=== PATIENT | male | born 1975 | race African-American/Black ===

== ENCOUNTER 2021-04-22 10:57 | Emergency (ER) | payer OTHER, SELFPAY ==
--- NOTE | ~2021-04-22 | XR_ITS ---
XR lumbar spine 2-3V DATE: 04/22/2021 11:27 INDICATION: Low back pain. No injury. TECHNIQUE: AP, lateral, coned lateral lumbosacral views COMPARISON: 10/21/2018 lumbar spine FINDINGS: There is minimal levoscoliosis. There is mild degenerative disc disease at L3-4 and moderately severe degenerative disc disease at L4 -5 and L5-S1. No fracture or bone destruction is evident. The lumbar pedicles are intact. No spondylolisthesis. The sacroiliac joints are unremarkable. IMPRESSION: Multilevel degenerative disc disease, most prominent at L4-5 and L5-S1 Reviewed, dictated and finalized at location A. [employer] IMPRESSION: Multilevel degenerative disc disease, most prominent at L4-5 and L5 -S1
--- NOTE | 2021-04-22 11:05 | ED.BACK ---
HPI - Back Pain/Injury General Chief Complaint: Back Pain/Injury Stated Complaint: back pain Time Seen by Provider: 04/22/21 11:08 Source: patient, RN notes reviewed and old records reviewed Mode of arrival: ambulatory Limitations: no limitations History of Present Illness HPI Narrative: 46 year old male presents to [facility] care with complaints of pain to his lumbar back with radiation to right buttocks and left buttocks down posteriorly to the knee area. Patient reports he has not taken any oral [id number] anti-inflammatories or any Tylenol, has used heat but that he states made it worse. Patient reports he had back surgery January 2019 at [facility] states it was a laminectomy. Patient denies any difficulty with bowel or bladder function states that he does have some tingling in the left upper leg. Patient describes his pain as pressure and is also sharp at times. MD elicited complaint: back pain Pertinent past history: back surgery Onset (ago): day(s) (4-5 days) Pain scale (0-10): 8 Related Data Home Medications Medication Instructions Recorded Confirmed cephalexin 04/22/21 Allergies Allergy/AdvReac Type Severity Reaction Status Date / Time No Known Allergies Allergy Unverified 10/19/18 05:32 Review of Systems Review of Systems: CONSTITUTIONAL: Denies fever, chills, or sweats. EYES: Denies visual changes, redness, or discharge. ENT: Denies rhinorrhea, congestion, sore throat, or otalgia. CARDIOVASCULAR: Denies chest pain, palpitations, or edema. RESPIRATORY: Denies cough or dyspnea. GASTROINTESTINAL: Denies abdominal pain, nausea, vomiting, or diarrhea. GENITOURINARY: Denies dysuria or hematuria. SKIN: Denies rash or itching. MUSCULOSKELETAL: Positive for lumbar back pain with radiation on pain into buttocks on right and down leg on left, joint pain, or myalgia. NEUROLOGIC: Denies headache, numbness, or weakness. PSYCHIATRIC: Denies anxiety or depression. All systems reviewed & are unremarkable except as noted in HPI and below PMFSH Past Medical History Medical History (Updated 04/22/21 @ 11:50 by Kristy Wang NP) Kidney stones Surgical History Surgical History (Updated 04/22/21 @ 11:11 by Kristy Wang NP) History of ankle surgery left for fracture Previous back surgery Family History Family History (Updated 04/22/21 @ 11:11 by Kristy Wang NP) Father Diabetes mellitus Mother Heart disease Social History Social History (Updated 04/22/21 @ 12:01 by Kristy Wang NP) Tobacco type: cigars Alcohol intake: current Alcohol use details: rare use Substance use: unknown Living arrangements: alone Gender identity (if verbalized by the patient): Male Comments At time of signature, agree with nursing past medical, surgical, social and family history. There is no relevant family history pertinent to the presenting complaint Exam Narrative: GENERAL: Well-appearing, well-nourished, and in some acute distress due to stated pain HEAD: Normocephalic, atraumatic. EYES: PERRLA and EOMI. ENT: Nares clear, no rhinorrhea or epistaxis. Mucous membranes moist. NECK: Supple. no lymphadenopathy CHEST: Clear to auscultation. No respiratory distress.SAO2 100% on room air HEART: Regular rate and rhythm. No murmur heard. Normal peripheral pulses. ABDOMEN: Soft, nontender, nondistended, normal active bowel sounds. EXTREMITIES: Normal range of motion. No edema. presents with pain to lumbar region with pain on right down into buttocks, on left into buttocks and down posterior left leg to knee with some tingling stated, pulses of adequate quality, using cane to assist with ambulation. Patient reports previous surgery to back at [facility] in January of 2019. patient denies any difficulty with his bowels or bladder functioning. SKIN: Warm, dry, no rash. NEURO: No focal deficits. Alert and oriented x3. Course Course Level of Care: Express Care Visit MDM - Back Pain/
[2021-04-22 11:08] VITALS: BP 120/80; PULSE 74; RESP 16; TEMP 36.9; O2SAT 100
== END 2021-04-22 11:57 | disposition home or self-care (01) ==
PROVIDERS: Emergency Provider Registered Nurse
DX: M54.16 Radiculopathy, lumbar region (principal); M51.36 Other intervertebral disc degeneration, lumbar region; F17.290 Nicotine dependence, other tobacco product, uncomplicated
CPT/HCPCS: 72100; 99213; G0463

== ENCOUNTER 2024-08-31 17:55 | Emergency (ER) | payer OTHER, SELFPAY ==
[2024-08-31 18:08] VITALS: BP 114/75; PULSE 60; RESP 16; TEMP 36.8; O2SAT 99
--- NOTE | 2024-08-31 18:28 | ED.LOWEXIN ---
HPI - Extremity Injury (Lower) General Chief Complaint: Extremity Injury, Lower Stated Complaint: INJURED R TOE Time Seen by Provider: 08/31/24 18:10 Source: patient Mode of arrival: ambulatory Limitations: no limitations History of Present Illness HPI Narrative: Mr. Vega is a 49-year-old male patient presenting to the clinic today with complaints of a right great toe injury. He reports 4 days ago he partially avulsed the toenail when he got the toenail caught on a piece of furniture. Is still attached at the base of the nail bed. States that it started draining a foul-smelling discharge yesterday. He denies any fevers, chills, body aches. Related Data Home Medications ?Medication ?Instructions ?Recorded ?Confirmed ?Last Taken ?Type cephalexin 500 mg capsule 04/22/21 Unknown History Allergies Allergy/AdvReac Type Severity Reaction Status Date / Time No Known Allergies Allergy Unverified 10/19/18 05:32 Review of Systems Review of Systems: Pertinent positives per HPI. Patient denies any fever, chills, rash, headache, visual changes, dizziness, cough, runny nose, sore throat, shortness of breath, chest pain, palpitations, nausea, vomiting, diarrhea, constipation, abdominal pain, or any urinary issues. PMFSH Past Medical History Medical History Kidney stones Surgical History Surgical History History of ankle surgery left for fracture Previous back surgery Family History Family History Father Diabetes mellitus Mother Heart disease Social History Social History Tobacco type: cigars Alcohol intake: current Alcohol use details: rare use Substance use: unknown Living arrangements: alone Gender identity (if verbalized by the patient): Male Comments At the time of my signature, I reviewed and agree with the nursing past medical, surgical, social, and family history. There is no relevant family history pertinent to the patient complaint. Exam Narrative: General: Well-developed, well nourished, in no apparent distress Head: Normocephalic, atraumatic. Cardio: Regular rate and rhythm, s1 and s2 normal, no murmur appreciated. Resp: Clear to auscultation bilaterally, no rhonchi, rales, wheezing or rubs. Musculoskeletal: No deformity, tenderness to palpation over the distal right great toe, partial nail avulsion with yellow discharge, wound culture obtained, grossly normal range of motion, muscle strength strong and equal, peripheral pulse strong, no edema, no cyanosis, normal gait and station Course Course Emergency Course: Portions of this record may have been created with voice recognition software. Level of Care: Express Care Visit Vital Signs Vital signs: Vital Signs Temperature 36.8 C 08/31/24 18:08 Pulse Rate 60 08/31/24 18:08 Respiratory Rate 16 08/31/24 18:08 Blood Pressure 114/75 08/31/24 18:08 Pulse Oximetry 99 08/31/24 18:08 Oxygen Delivery Room Air 08/31/24 18:08 Temperature 36.8 C 08/31/24 18:08 Pulse Rate 60 08/31/24 18:08 Respiratory Rate 16 08/31/24 18:08 Blood Pressure 114/75 08/31/24 18:08 Pulse Oximetry 99 08/31/24 18:08 Oxygen Delivery Room Air 08/31/24 18:08 Vital signs reviewed MDM - Extremity Injury (Lower) MDM Narrative Medical decision making narrative: At the time of visit patient is resting comfortably on the exam table. Patient appears to be nontoxic. Medications: Tdap 0.5 mL IM was given in the clinic today Labs: Wound culture was obtained and sent to the lab Plan: I suspect patient has a right great toe cellulitis/skin infection with a partial nail avulsion. Recommend follow-up with production specialist and have the patient start with a clindamycin. Supportive measures were discussed with the patient and they voiced understanding discharge instructions and agrees to treatment plan. Return precautions reviewed Differential Diagnosis Differential diagnosis: Likely other (Toenail avulsion, cellulitis, skin infection, laceration) Discharge Plan Discharge Clinical Impression: Cellulitis of great toe of right foot, Avulsion of nail Patient Disposition: Home Condition: Stable Instructions: Antibiotic Form, Cellulitis (ED), Nail Avulsion (ED) Additional Instructions: Tdap given in the clinic today Wound culture was obtained and sent to the lab Take clindamycin as prescribed Keep area clean and dry Keep covered if draining May take Tylenol/Motrin as needed for pain May complete Epsom salt soaks 4 times daily using warm water and Epsom salt Follow-up with production specialist as discussed-call tomorrow to schedule appointment Follow-up with PCP in 2-3 days if unable to get to production specialist Patient Language: Hebrew Prescriptions: New clindamycin HCl [Cleocin HCl] 300 mg capsule 300 mg PO Q8H 10 Days Qty: 30 0RF No Action cephalexin 500 mg capsule prednisone 20 mg tablet 20 mg PO BID 5 Days Qty: 10 0RF metaxalone [Skelaxin] 800 mg tablet 800 mg PO TID PRN (Reason: muscle pain) Qty: 20 0RF Rx Instructions: Do not drive while taking ibuprofen 600 mg tablet 600 mg PO TID PRN (Reason: pain) Qty: 30 0RF Rx Instructions: Always take with food Follow-up/Referrals: Aroldo Martin DPM [Physician] - 1 Day (Partial nail avulsion of the right great toe with right great toe cellulitis) Akash,MD Payam [Primary Care Provider] - Time of Disposition: 18:35 Quality NIHSS Nursing Documentation ED NIHSS nursing documentation: reviewed/agree
[2024-08-31] MEDS: TETANUS,DIPHTHERIA,AC PERTUSSIS ADULT (0.5 ML) BOOSTRIX IM (18:56)
== END 2024-08-31 18:47 | disposition home or self-care (01) ==
PROVIDERS: Emergency Provider Nurse Practitioner Family; PCP Family Medicine
DX: L03.031 Cellulitis of right toe (principal); S91.201A Unspecified open wound of right great toe with damage to nail, initial encounter; W22.03XA Walked into furniture, initial encounter; Z23 Encounter for immunization
CPT/HCPCS: 87070; 87075; 87186; 87205; 90471; 90715; 99213; G0463

== ENCOUNTER 2025-02-03 13:12 | Emergency (ER) | payer OTHER, SELFPAY ==
[2025-02-03 13:26] VITALS: BP 121/87; PULSE 71; RESP 16; TEMP 36.6; O2SAT 100
--- NOTE | 2025-02-03 13:36 | ED.SKABFB ---
HPI - Skin/Abscess/Foreign Bdy General Chief complaint: Skin/Abscess/Foreign Body Stated complaint: Rash Time Seen by Provider: 02/03/25 13:30 Source: patient Mode of arrival: ambulatory Limitations: no limitations History of Present Illness HPI narrative: Keith is a 50-year-old male patient presenting to the clinic today with complaints of a rash to his groin and to his bilateral lower extremities. He reports he has 2 areas that are tender and draining to the lower legs. Areas are mildly red and erythemic. He denies any fevers, chills, body aches. States he has a rash in his groin that is burning, sensitive, and using some drainage. Does have pustule lesions to his penis, scrotum, and in the tissue just under the scrotum. Symptoms have been going on for 1-2 weeks. Denies any fevers, chills, body aches. No concern for STIs. Has not been with a new partner. Related Data Home Medications ?Medication ?Instructions ?Recorded ?Confirmed ?Last Taken ?Type cephalexin 500 mg capsule 04/22/21 Unknown History Allergies Allergy/AdvReac Type Severity Reaction Status Date / Time No Known Allergies Allergy Verified 02/03/25 13:32 Review of Systems Review of Systems: Pertinent positives per HPI. Patient denies any fever, chills, rash, headache, visual changes, dizziness, cough, runny nose, sore throat, shortness of breath, chest pain, palpitations, nausea, vomiting, diarrhea, constipation, abdominal pain, or any urinary issues. [facility] Past Medical History Medical History Kidney stones Surgical History Surgical History History of ankle surgery left for fracture Previous back surgery Family History Family History Father Diabetes mellitus Mother Heart disease Social History Social History Tobacco type: cigars Alcohol intake: current Alcohol use details: rare use Substance use: unknown Living arrangements: alone Gender identity (if verbalized by the patient): Male Comments At the time of my signature, I reviewed and agree with the nursing past medical, surgical, social, and family history. There is no relevant family history pertinent to the patient complaint. Exam Narrative: General: Well-developed, well nourished, in no apparent distress Head: Normocephalic, atraumatic. Cardio: Regular rate and rhythm, s1 and s2 normal, no murmur appreciated. Resp: Clear to auscultation bilaterally, no rhonchi, rales, wheezing or rubs. Integumentary: [place], warm, and dry, pustular lesions to bilateral lateral lower extremities with localized redness and swelling, tenderness to palpation without palpable abscess, pustular lesions to penis, scrotum, and to the tissue underneath the scrotal area. Areas are tender to palpation with very minimal induration. Glistening rash in the groin area with itching/burning/sensitivity Course Course Emergency Course: Portions of this record may have been created with voice recognition software. Level of Care: Express Care Visit Vital Signs Vital signs: Vital Signs Temperature 36.6 C 02/03/25 13:26 Pulse Rate 71 02/03/25 13:26 Respiratory Rate 16 02/03/25 13:26 Blood Pressure 121/87 02/03/25 13:26 Pulse Oximetry 100 02/03/25 13:26 Temperature 36.6 C 02/03/25 13:26 Pulse Rate 71 02/03/25 13:26 Respiratory Rate 16 02/03/25 13:26 Blood Pressure 121/87 02/03/25 13:26 Pulse Oximetry 100 02/03/25 13:26 Vital signs reviewed MDM - Skin/Abscess/Foreign Bdy MDM Narrative Medical decision making narrative: At the time of visit patient is resting comfortably on the exam table. Patient appears to be nontoxic. Complaints of a rash to his groin and to his bilateral lower extremities. He reports he has 2 areas that are tender and draining to the lower legs. Areas are mildly red and erythemic. He denies any fevers, chills, body aches. States he has a rash in his groin that is burning, sensitive, and using some drainage. Does have pustule lesions to his penis, scrotum, and in the tissue just under the scrotum. Symptoms have been going on for 1-2 weeks. Denies any fevers, chills, body aches. No concern for STIs. Has not been with a new partner. On exam patient has pustular lesions to bilateral lateral lower extremities with localized redness and swelling, tenderness to palpation without palpable abscess, pustular lesions to penis, scrotum, and to the tissue underneath the scrotal area. Areas are tender to palpation with very minimal induration, glistening rash in the groin area with itching/burning/sensitivity Plan: I suspect patient has a bacterial skin infection/yeast infection. Prescription for doxycycline and nystatin cream was sent to the pharmacy. Recommend follow-up with PCP in 1 week if symptoms persist. Supportive measures were discussed with the patient and they voiced understanding discharge instructions and agrees to treatment plan. Return precautions reviewed Differential Diagnosis Differential diagnosis: Likely abscess of skin or subcutaneous tissue, cellulitis, eczema, impetigo, contact dermatitis and other (Skin yeast infections, pustular lesions, bacterial skin infection,) Discharge Plan Discharge Clinical Impression: Bacterial infection of skin, Yeast infection of the skin Patient Disposition: Home Condition: Stable Instructions: Antibiotic Form, Skin Yeast Infection (ED) Additional Instructions: Take doxycycline as prescribed times 10 days Apply nystatin cream to the affected area twice daily times 14 days Keep areas clean and dry Keep area is covered if there draining Recommend follow-up with PCP in 1 week if symptoms persists Go to the emergency room if symptoms worsen-developed fever, increase in redness, increase in swelling, increase in pain, or purulent discharge Patient Language: Amharic Prescriptions: New doxycycline monohydrate 100 mg capsule 100 mg PO BID 10 Days Qty: 20 0RF nystatin 100,000 unit/gram cream 1 applic topical BID 14 Days Qty: 30 0RF No Action cephalexin 500 mg capsule prednisone 20 mg tablet 20 mg PO BID 5 Days Qty: 10 0RF metaxalone [Skelaxin] 800 mg tablet 800 mg PO TID PRN (Reason: muscle pain) Qty: 20 0RF Rx Instructions: Do not drive while taking ibuprofen 600 mg tablet 600 mg PO TID PRN (Reason: pain) Qty: 30 0RF Rx Instructions: Always take with food clindamycin HCl [Cleocin HCl] 300 mg capsule 300 mg PO Q8H 10 Days Qty: 30 0RF ciprofloxacin HCl 500 mg tablet 500 mg PO Q12H Qty: 14 0RF Follow-up/Referrals: AkashPayam MD [Primary Care Provider, Unknown] Time of Disposition: 13:40 Quality NIHSS Nursing Documentation ED NIHSS nursing documentation: reviewed/agree
== END 2025-02-03 13:56 | disposition home or self-care (01) ==
PROVIDERS: Emergency Provider Nurse Practitioner Family; PCP Family Medicine
DX: L08.9 Local infection of the skin and subcutaneous tissue, unspecified (principal); B96.89 Other specified bacterial agents as the cause of diseases classified elsewhere; B37.2 Candidiasis of skin and nail
CPT/HCPCS: 99213; G0463

== ENCOUNTER 2025-02-21 16:46 | Emergency (ER) | payer OTHER, SELFPAY ==
[2025-02-21 17:41] VITALS: BP 129/73; PULSE 61; RESP 18; TEMP 36.6; O2SAT 100
--- NOTE | 2025-02-21 18:09 | ED_ITS ---
HPI - Skin/Abscess/Foreign Bdy General Chief complaint: Skin/Abscess/Foreign Body Stated complaint: RASH History of Present Illness HPI narrative: CHIEF COMPLAINT: Skin infection. PATIENT SUMMARY: The patient presented with a skin infection. HISTORY OF PRESENT ILLNESS: The patient reported that the initial rash had worsened and now exhibited signs of infection with a burning sensation around the affected area. The patient noticed swelling in the leg and a new swelling in a different area. Two weeks prior, the patient was prescribed antibiotics and steroids, which were picked up from [facility], but did not observe any improvement after completing the ten-day course. The patient mentioned having chills and sweating on the preceding Sunday but did not report fever or body aches. The patient was concerned about the original rash site and mentioned a need for a cream initially prescribed for a rash. The patient's primary care provider is Dr. Megan Bustos, and blood work was scheduled after not having been conducted for over a year. The patient was advised on red flag symptoms, such as fever and red streaking, which would necessitate an emergency department visit. PAST MEDICAL HISTORY: No significant medical history reported. REVIEW OF SYSTEMS: Skin: Positive for burning sensation and swelling in the leg. Negative for fever and body aches. VITALS AND PHYSICAL EXAM: Not available. ASSESSMENT: 1. Cellulitis: The patient's symptoms of swelling, burning sensation, and lack of response to initial antibiotic treatment suggest cellulitis. The current presentation with worsening symptoms and previous treatment course indicates infection persistence. 2. Secondary Infection: Given the initial rash and subsequent infection, a secondary infection or exacerbation of the previous dermatological issue is possible, especially considering the need for additional cream. PLAN: Treatment: - Prescribed oral antibiotics for cellulitis. - Recommended moisturizing the skin with Vaseline to prevent dryness and further skin issues. Tests: - Suggested follow-up blood work with the primary care provider. Patient Education: - Advised on the importance of moisturizing the skin to prevent cellulitis. - Informed about red flag symptoms necessitating emergency evaluation. Follow-Up: - Encouraged follow-up with the primary care provider for further evaluation and testing. Disposition: - Planned to send a different antibiotic prescription to address the wider range of potential infectious agents. MEDICAL DECISION MAKING: The patient's history indicated a worsening infection despite prior antibiotic treatment, suggesting the need for a broader-spectrum antibiotic. The decision to prescribe oral antibiotics was based on the presentation of cellulitis with swelling and a burning sensation. The plan of care included addressing potential contributing factors like dry skin by recommending the use of moisturizers such as Vaseline. The patient was informed about the importance of monitoring for worsening symptoms and advised to follow up with their primary care provider for further evaluation and testing, including routine blood work. Related Data Allergies Allergy/AdvReac Type Severity Reaction Status Date / Time No Known Allergies Allergy Verified 02/21/25 17:41 Review of Systems Review of Systems: All systems reviewed & are unremarkable except as noted in HPI and below Eyes: Eyes: Reports as per HPI ENT: Reports as per HPI Cardiovascular: Cardiovascular: Reports as per HPI Respiratory: Respiratory: Reports as per HPI Genitourinary: Genitourinary: Reports as per HPI Musculoskeletal: Musculoskeletal: Reports as per HPI Integumentary/Breasts: Skin/Breast: Reports as per HPI Neurologic: Reports as per HPI Psychiatric: Psychiatric: Reports as per HPI Endocrine: Endocrine: Reports as per HPI Hematologic/Lymphatic: Hematologic/Lymphatic: Reports as per HPI Allergic/Immunologic: Allergic/Immunologic: Reports as per HPI PMFSH Past Medical History Medical History Kidney stones Surgical History Surgical History History of ankle surgery left for fracture Previous back surgery Family History Family History Father Diabetes mellitus Mother Heart disease Social History Social History Tobacco type: cigars Alcohol intake: current Alcohol use details: rare use Substance use: unknown Living arrangements: alone Gender identity (if verbalized by the patient): Male Exam Const: General: cooperative, healthy appearing, comfortable, no acute distress and well developed Orientation/consciousness: patient oriented x3 HENMT: Head: normal to inspection Eyes: General: appearance normal, both eyes and all related structures Resp: Effort & Inspection: normal respiratory effort and able to speak in complete sentences Auscultation: clear to auscultation bilaterally Cardio: Rate: regular rate Rhythm: regular rhythm Heart sounds: S1 normal heart sound present and S2 normal heart sound present Skin: General skin exam: normal color Other: BLE with erythema and scabing noted. no fluctuant areas. Neuro: General: patient oriented x3 Cognition (Neuro): normal cognition Speech: normal speech Psych: Mental Status: mental status grossly normal Course Course Level of Care: Express Care Visit Vital Signs Vital signs: Vital Signs Temperature 98 F 02/21/25 17:41 Pulse Rate 61 02/21/25 17:41 Respiratory Rate 18 02/21/25 17:41 Blood Pressure 129/73 02/21/25 17:41 Pulse Oximetry 100 02/21/25 17:41 Temperature 98 F 02/21/25 17:41 Pulse Rate 61 02/21/25 17:41 Respiratory Rate 18 02/21/25 17:41 Blood Pressure 129/73 02/21/25 17:41 Pulse Oximetry 100 02/21/25 17:41 MDM - Skin/Abscess/Foreign Bdy MDM Narrative Medical decision making narrative: MEDICAL DECISION MAKING: The patient's history indicated a worsening infection despite prior antibiotic treatment, suggesting the need for a broader-spectrum antibiotic. The decision to prescribe oral antibiotics was based on the presentation of cellulitis with swelling and a burning sensation. The plan of care included addressing potential contributing factors like dry skin by recommending the use of moisturizers such as Vaseline. The patient was informed about the importance of monitoring for worsening symptoms and advised to follow up with their primary care provider for further evaluation and testing, including routine blood work. Differential Diagnosis Differential diagnosis: Likely abscess of skin or subcutaneous tissue, allergic reaction to drug and cellulitis Medical Records Attestation: I reviewed the patient's medical records. Discharge Plan Discharge Clinical Impression: Cellulitis Patient Disposition: Home Condition: Stable Instructions: Antibiotic Form, Cellulitis (ED) Additional Instructions: Please follow up with primary care if no improvement in symptoms in 3-5 days as you might need more testing than we can do in the urgent care setting. To the ER with the symptoms we talked about. Patient Language: Niuean Prescriptions: New sulfamethoxazole-trimethoprim [Bactrim DS] 800-160 mg tablet 1 tablet PO Q12H Qty: 20 0RF cephalexin 500 mg capsule 500 mg PO Q8H Qty: 30 0RF nystatin 100,000 unit/gram cream 1 applic topical BID Qty: 30 0RF Discontinued cephalexin 500 mg capsule prednisone 20 mg tablet 20 mg PO BID 5 Days Qty: 10 0RF metaxalone [Skelaxin] 800 mg tablet 800 mg PO TID PRN (Reason: muscle pain) Qty: 20 0RF Rx Instructions: Do not drive while taking clindamycin HCl [Cleocin HCl] 300 mg capsule 300 mg PO Q8H 10 Days Qty: 30 0RF ciprofloxacin HCl 500 mg tablet 500 mg PO Q12H Qty: 14 0RF doxycycline monohydrate 100 mg capsule 100 mg PO BID 10 Days Qty: 20 0RF No Action ibuprofen 600 mg tablet 600 mg PO TID PRN (Reason: pain) Qty: 30 0RF Rx Instructions: Always take with food nystatin 100,000 unit/gram cream 1 applic topical BID 14 Days Qty: 30 0RF Follow-up/Referrals: Akash,MD Payam [Primary Care Provider, Unknown] Time of Disposition: 18:16
== END 2025-02-21 18:20 | disposition home or self-care (01) ==
PROVIDERS: Emergency Provider Nurse Practitioner Family; PCP Family Medicine
DX: L03.116 Cellulitis of left lower limb (principal); L03.115 Cellulitis of right lower limb; F17.290 Nicotine dependence, other tobacco product, uncomplicated
CPT/HCPCS: 99213; G0463

== ENCOUNTER 2025-03-08 15:20 | Emergency (ER) | payer MEDICAID, SELFPAY ==
[2025-03-08] VITALS (23 sets, daily range): BP systolic 92–129; BP diastolic 40–85; PULSE 55–67; RESP 14–20; TEMP 36.4; O2SAT 100
--- NOTE | ~2025-03-08 | XR_ITS ---
EXAMINATION: XR tibia fibula RT 2V, 03/08/2025 16:47 TESTING [employer]AKING SHIPPING HISTORY: R LE infection, swelling COMPARISON: No comparisons available. Findings: No acute fracture or malalignment. No significant degenerative changes. Soft tissues unremarkable. Impression: No acute fracture or malalignment. Reviewed, dictated and finalized at location P. ING SHAKING SHIPPING Impression: No acute fracture or malalignment.
--- NOTE | ~2025-03-08 | US_ITS ---
EXAMINATION: US venous doppler [facility], 03/08/2025 17:33 [facility] UNDERWRITER HISTORY: r/o DVT, abscess COMPARISON: None Technique: Willams-scale and color Doppler images were attempted of the lower saphenofemoral junction, common femoral vein,superficial femoral vein, proximal deep femoral vein, proximal deep femoral vein, popliteal vein and posterior tibial veins. Findings: Deep Venous System:Normal flow, augmentation and compressibility. No echogenic thrombus identified. Superficial Venous SystemNo superficial thrombophlebitis. Soft tissues: Soft tissues demonstrate prominent inguinal lymph nodes probably reactive the largest in the right inguinal soft tissues 1.8 x 0.6 x 1.3 cm. Impression: Negative for DVT. Reviewed, dictated and finalized at location P. UNDERWRITER Impression: Negative for DVT.
--- NOTE | ~2025-03-08 | XR_ITS ---
EXAMINATION: XR tibia fibula LT 2V, 03/08/2025 18:30 KILN PULLER HISTORY: L LE wound COMPARISON: No comparisons available. Findings: Postsurgical changes with fixation of the distal fibula, the hardware is intact, no acute fracture is identified. No significant degenerative changes. Soft tissues unremarkable. Impression: Postsurgical changes Reviewed, dictated and finalized at location P. PULLER Impression: Postsurgical changes
--- OUTSIDE RECORDS SUMMARY | 2025-03-08 15:23 | XMS_ITS | Data Portability ---
Author Organization [place] - [facility] [employer], Main Office Address [address] [place] [address] Care Team Providers Care Maintenance Manager Name Role Phone PAYAM BUSTOS Primary Care Provider Assessment Encounter Date Assessment Date Assessment LastModified by Organization Details LastModified Time 06/26/2023 06/26/2023 hidradenitis bilateral axilla. Options discussed patient. We will schedule for excisional debridement bilaterally under anesthesia. Risks and benefits were discussed. Main risks include bleeding further infection numbness Not available 06/26/2023 11:56:48 07/10/2023 07/10/2023 status post debridement of bilateral axillary hidradenitis. Wounds cleaned and packed today. Daily packing at home. Follow-up 1 week Not available 07/10/2023 12:23:57 07/17/2023 07/17/2023 Continue wet to dry dressings daily. Anticipate wound closure in 2-4 weeks. f/u PRN. Not available 07/17/2023 13:56:31 02/26/2024 02/26/2024 49 yo M with - WELL ADULT VISIT - B/L AXILLARY CYSTS, chronic - VIT D DEFICIENCY - ED - CHRONIC LOW BACK PAIN, stable - ATYPICAL CHEST PAIN, resolved - FH OF CVD - FH OF DM - EX-SMOKER - S/P LUMBAR SURGERY (02/18) Annual labs: 08/09/22. D/w pt in detail about his conditions, recent labs and further plan of care. Will do routine labs. Pt declined for cxr. Will refer pt to Cardio, Derm and GI. Meds as directed. Routine wound care explained in detail. Diet and exercise explained in detail. BP diary education given and call us if any concerns. F/u with Derm as per schedule. F/u with Cardio as per schedule. Cont f/u with Surg as per schedule. HM: Colonoscopy - Never. Referred to GI again. Flu - Pt declined. Tdap, Pneumo - At pharmacy/HD. F/u in 2-3 weeks. Annual labs in 02/24. [email or web address] Not available 02/26/2024 12:44:55 07/01/2024 07/01/2024 49 yo M with - B/L AXILLARY CYSTS, chronic - HIDRADENITIS SUPPORATIVA, chronic - VIT D DEFICIENCY - ED - CHRONIC LOW BACK PAIN, stable - ATYPICAL CHEST PAIN, resolved - FH OF CVD - FH OF DM - EX-SMOKER - S/P LUMBAR SURGERY (02/18) Annual labs: 08/09/22. D/w pt in detail about his conditions, recent labs and further plan of care. Advised pt to get routine labs done soon. Orders given again. Will refer pt to Derm and GI again. Meds as directed. Routine wound care explained in detail. Diet and exercise explained in detail. BP diary education given and call us if any concerns. F/u with Derm as per schedule. Cont f/u with Cardio as per schedule. Cont f/u with Surg as per schedule. Pt declined for cxr. HM: Colonoscopy - Never. Referred to GI again. Flu - Pt declined. Tdap, Pneumo - At pharmacy/HD. F/u in 3 weeks. Annual labs in 06/25. [email or web address] Not available 07/01/2024 11:23:12 Plan of Treatment Reminders Order Date Submit Date Provider Last Modified By Organization Details Last Modified Time Details Appointments None recorded. Lab vitamin D, 25-hydroxy, total, serum 2024 025 [email or web address] 4 [facility] (Lab), [address] [place], [address], 5 10:35:58 testosteron e, free + total, serum 2024 025 [email or web address] 4 [facility] (Lab), [address] [place], [address], 5 10:35:58 CMP, serum or plasma 2024 025 [email or web address] 4 [facility] (Lab), [address] [place], [address], 5 10:35:57 CBC w/ auto diff 2024 025 [email or web address] 4 [facility] (Lab), [address] [place], [address], 5 10:35:57 lipid panel, blood 2024 025 [email or web address] 4 [facility] (Lab), [address] [place], [address], 5 10:35:57 TSH, serum, reflex free T4 2024 025 [email or web address] 4 [facility] (Lab), [address] [place], [address], 5 10:35:57 PSA, serum or plasma 2024 025 [email or web address] 4 [facility] (Lab), [address] [place], [address], 5 10:35:58 urinalysis complete, reflex culture 2024 025 [email or web address] 4 [facility] (Lab), [address] [place], [address], 5 10:35:58 glycohemogl obin, total, blood 2024 025 [email or web address] 4 [facility] (Lab), [address] [place], [address], 5 10:35:58 vitamin D, 25-hydroxy, total, serum 2023 024 [email or web address] 4 [facility] (Lab), [address] [place], [address], 5 15:56:13 testosteron e, free + total, serum 2023 [email or web address] 4 [facility] (Lab), [address] [place], [address], 5 15:56:13 CMP, serum or plasma 2023 [email or web address] 4 [facility] (Lab), [address] [place], [address], 5 15:56:12 CBC w/ auto diff 2023 [email or web address] 4 [facility] (Lab), [address] [place], [address], 5 15:56:12 lipid panel, blood 2023 4 [facility] (Lab), [address] [place], [address], 5 15:56:12 TSH, serum, reflex free T4 2023 [email or web address] 4 [facility] (Lab), [address] [place], [address], 5 15:56:12 PSA, serum or plasma 2023 024 4 [facility] (Lab), [address] [place], [address], 5 15:56:13 urinalysis complete, reflex culture 2023 [id number] 4 [facility] (Lab), [address] [place], [address], 5 15:56:13 glycohemogl obin, total, blood 2023 024 [email or web address] 4 [facility] ([facility]), [address], [place], [address], 5 15:56:13 Referral gastroenter ologist referral - Please call patient to schedule an appointment . Thank you. 2024 025 iman Oliva MD, [address], [place], [address], 5 09:18:[address] referral - Please call patient to schedule an appointment . Thank you. 2024 025 [email or web address] Paulina Duarte NP, [address] [place], [address], 5 08:37:14 gastroenter ologist referral - Please call patient to schedule an appointment . Thank you. 2023 024 [email or web address] Thom Valencia MD, [address], [address], [place], [address], 4 09:09:[address] referral - Please call patient to schedule an appointment . Thank you. 2023 024 [email or web address] Paulina Duarte NP, [address] [place], [address], 4 09:12:06 cardiologis t referral - Please call patient to schedule an appointment . Thank you. 2023 024 [email or web address] [facility], [address], [address], [place], [address], 09:12:29 Procedures None recorded. Surgeries None recorded. Imaging None recorded. Medication Orders Bactrim DS 800 mg-160 mg tablet 2024 025 [facility] [address] [place], [address], 5 11:02:52 ibuprofen 600 mg tablet 2024 025 [facility] [address] [place], [address], 5 11:02:50 doxycycline hyclate 100 mg capsule 2023 024 [facility] [address] [place], [address], 4 12:33:54 Patient TargetsNo targets recorded. Patient InstructionsNo instructions recorded. 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 Thank you. Referring Physician: Payam Bustos [facility], Encounter Date: 02/26/2024 Barber Tool Sharpener Referral for R ecurrent skin infection Recurrent skin infections, HS Please call patient to schedule an appointment. Thank you. Referring Physician: Payam Bustos [facility], Encounter Date: 02/26/2024 It Systems Analyst Referral for [facility] history of Cardiovascular disease Please call patient to schedule an appointment. Thank you. Referring Physician: Family Jane Lees, Encounter Date: 02/26/2024 Motorcycle Racer Referral for Screening colonoscopy Please call patient to schedule an appointment. Thank you. Referring Physician: Payam Bustos [facility] Jane, Encounter Date: 07/01/2024 Barber Tool Sharpener Referral for R ecurrent skin infection Please call patient to schedule an appointment. Thank you. Referring Physician: Payam Bustos [facility], Encounter Date: 07/01/2024 Results Created Date Observation Date Name Description Value Unit Range Abnormal Flag Note LastModifiedBy Organization Detail LastModifiedTime Result Notes None recorded. Problems Name Problem SNOMED Code Status Onset Date Resolution Date Notes Provider Name and Address Organization Details Recorded Time Onychomyco sis of toenails 383227637 Active 2021 Not Available [facility] 3 13:29:45 Environmen garcia allergy 416385459 Active 2021 Not Available [facility] 3 13:29:46 Tinea pedis 6796936 Active 2021 Not Available [facility] 3 13:29:46 Adult health examinatio n Active 2022 Rich Stroud DPM [address], [address], [place], [address] , [employer] 3 10:38:59 Atypical chest pain 340199677 Active 2022 Payam Bustos MD [address], [address], [place], [address] , [employer] 3 12:25:14 Pleuritic pain 7615626 Active 2022 Payam Bustos MD [address], [address], [place], [address] , [employer] 3 12:25:24 Ex-smoker 5175866 Active 2022 Payam Bustos MD [address], [address], [place], [address] , [employer] 3 12:25:43 Family history of Cardiovasc ular disease 845671464 Active 2022 Payam Bustos MD [address], [address], [place], [address] , [employer] 3 12:26:44 Abscess of left axilla 8178426044556 9108 Active 2022 Payam Bustos MD [address], [address], [place], [address] , [employer] 3 12:31:26 Dystrophia unguium 77741211 Active 2022 Rich Stroud DPM [address], [address], [place], [address] , [facility] 3 10:47:02 Fatigue 30394621 Active 2022 Payam Bustos MD [address], [address], [place], [address] , [facility] 3 10:54:52 Sebaceous cyst of skin 100949682 Active 2022 Payam Bustos MD [address], [address], [place], [address] , [facility] 3 10:56:06 Chronic low back pain 340263457 Active 2022 Payam Bustos MD [address], [address], [place], [address] , [facility] 3 10:59:33 Vitamin D deficiency 95143345 Active 2022 Payam Bustos MD [address], [place], [address] , [facility] 3 15:33:22 Furuncle of left axilla 7830297867069 9100 Active 2023 Payam Bustos MD [address], [place] [address], [place], [address] , [facility] 4 15:20:14 Folliculit is 54819437 Active 2023 Payam Bustos MD [address], [address], [place], [address] , [facility] 4 15:21:21 Hidradenit is suppurativ a 38241342 Active 2023 Jarocho gardner MD [address], [address], [place], [address] , [facility] 4 13:41:32 Recurrent skin infection 216494417 Active 2023 Payam Bustos MD [address], [address], [place], [address] , [facility] [employer] [facility] 4 12:30:26 Erectile dysfunctio n 264469413 Active 2023 Payam Bustos MD [address] [facility], [address], [place], [address] , [facility] [employer] [facility] 4 12:32:35 Family history of diabetes mellitus 544981461 Active 2023 Payam Bustos MD [address] [facility], [facility] [address], [place], [address] , [facility] [employer] [facility] 12:44:41 Problem Notes None recorded. Procedures Surgical History Date Name Laterality Status Provider Name and Address Organization Details Recorded Time 4 other completed Amanda Serna MA [facility] [employer] [facility] 07/05/2023 12:37:33 3 Nail Debridement completed Rich Stroud DPM [address] [facility], [facility] [address], [place], [address], [facility] [employer] [facility] 06/22/2022 10:38:50 laminectomy completed Divya Chauhan RN [facility] [employer] [facility] 07/25/2022 12:02:58 Ankle Surgery completed Divya Chauhan RN [facility] [employer] [facility] 07/25/2022 12:03:23 Imaging Results None recorded. Procedure Notes None recorded. Medical Equipment None Reported. Allergies No known drug allergies Medications Name Sig Start Date Stop Date Status Note LastModified by Organization Details LastModified Time cyclobenzap rine 10 mg tablet TAKE 1 TABLET BY MOUTH EVERY 12 HOURS NEEDED 06/05 completed Not Available Not Available Not Available cefazolin 1 gram solution for injection Take 1 g by injection route for 1 day. 02/25 completed Not Available Not Available Not Available doxycycline hyclate 100 mg capsule Take 1 capsule twice a day by oral route as directed for 15 days. active Not Available Not Available No t Available clindamycin HCl 300 mg capsule TAKE 1 CAPSULE BY MOUTH THREE TIMES DAILY DIRECTED FOR 10 DAYS 06/05 completed Not Available Not Available Not Available fluconazole 150 mg tablet TAKE 1 TABLET BY MOUTH 1 TIME FOR 1 DAY 07/25 completed Not Available Not Available Not Available meloxicam 15 mg tablet 07/25 completed Not Available Not Available Not Available prednisone 20 mg tablet TAKE 1 TABLET BY MOUTH TWICE DAILY FOR 5 DAYS 01/09 completed Not Available Not Available Not Available sulfamethox azole 800 mg-trimetho prim 160 mg tablet TAKE 1 TABLET BY MOUTH EVERY 12 HOURS DIRECTED FOR 14 DAYS active Not Available Not Available No t Available oxycodone-a cetaminophe n 5 mg-325 mg tablet TAKE 1 TABLET BY MOUTH EVERY 6 HOURS NEEDED 02/25 completed Not Available Not Available Not Available terbinafine HCl 250 mg tablet Take 1 tablet every day by oral route as directed for 14 days. 07/25 completed Not Available Not Available Not Available cephalexin 500 mg capsule TAKE 1 CAPSULE BY MOUTH EVERY 8 HOURS FOR 10 DAYS 01/09 completed Not Available Not Available Not Available gentian yael 2 % topical solution Apply 1 applicati on every day by topical route as directed. 07/25 completed Not Available Not Available Not Available diclofenac sodium 75 mg tablet,luis yed release TAKE 1 TABLET BY MOUTH EVERY 12 HOURS NEEDED 06/05 completed Not Available Not Available Not Available ergocalcife rol (vitamin D2) 1,250 mcg (50,000 unit) capsule Take 1 capsule every week by oral route as directed. 06/05 completed Not Available Not Available Not Available ibuprofen 600 mg tablet TAKE 1 TABLET BY MOUTH EVERY 8 HOURS NEEDED FOR 10 DAYS active Not Available Not Available No t Available methylpredn isolone 4 mg tablets in a dose pack TAKE BY MOUTH DIRECTED ON INSIDE OF PACKAGE 08/22 completed Not Available Not Available Not Available ketoconazol e 2 % topical cream APPLY TO THE AFFECTED AREA(S)to enails BY TOPICAL ROUTE ONCE DAILY 07/25 completed Not Available Not Available Not Available clotrimazol e 1 % topical cream APPLY TOPICALLY TO THE AFFECTED AREA EVERY 12 HOURS 07/25 completed Not Available Not Available Not Available metaxalone 800 mg tablet TAKE 1 TABLET BY MOUTH THREE TIMES DAILY NEEDED FOR MUSCLE PAIN. DO NOT DRIVE WHILE TAKING 01/09 completed Not Available Not Available Not Available Golytely 236 gram-22.74 gram-6.74 gram-5.86 gram oral solution take as directed 2024 active Not Available Not Available Not Avai lable Vitals Date Recorded Body height Body mass index (BMI) Body weight Body temperature Heart rate Provider Name and Address Organization Details Last Updated DateTime 06/26/2023 182.88 cm 25.2 kg/m2 11426.18 g 97.4 [degF] 58 /min Meg Ahmadi [place] [employer] [facility] [employer] 4 11:15:07 Date Recorded Body height Body mass index (BMI) Body weight Body temperature Oxygen saturation Heart rate Systolic And Diastolic Provider Name and Address Organization Details Last Updated DateTime 5 182.88 cm 26 kg/m2 62529.5 9 g 97.2 [degF] 99 % 62 /min 132/78 mm[Hg] Rafaela Juan RN [facility] [employer] 5 10:57:25 Date Recorded Body height Body mass index (BMI) Body weight Body temperature Heart rate Respiratory rate Oxygen saturation Systolic And Diastolic Provider Name and Address Organization Details Last Updated DateTime 4 182.88 cm 25.2 kg/m2 72560.1 8 g 97.4 [degF] 58 /min 16 /min 97 % 110/62 mm[Hg] Meg Ahmadi [employer] 4 12:15:45 Date Recorded Body height Body mass index (BMI) Body weight Body temperature Heart rate Respiratory rate Oxygen saturation Systolic And Diastolic Provider Name and Address Organization Details Last Updated DateTime 4 182.88 cm 25.2 kg/m2 41131.1 8 g 97.4 [degF] 58 /min 16 /min 97 % 110/62 mm[Hg] Meg Ahmadi [employer] [facility] [employer] 4 12:07:18 Date Recorded Body height Body mass index (BMI) Body weight Body temperature Oxygen saturation Heart rate Systolic And Diastolic Provider Name and Address Organization Details Last Updated DateTime 4 182.88 cm 26 kg/m2 20141.2 9 g 97.5 [degF] 96 % 58 /min 114/74 mm[Hg] Rafaela Juan RN [facility] [employer] [facility] 4 12:21:31 Social History Question Answer Notes LastModified by Organizat ion Details LastModified Time Tobacco Smoking Status Former Smoker Not Available [facility] 05/31/2022 13:29:19 Do You Have An Advance Directive? No [email or web address] Information not available 07/25/2022 What Is Your Level Of Caffeine Consumption? Occasional [id number] Information not available 05/31/2022 In The 14 Days Before Symptom Onset, Have You Had Close Contact With A Laboratory-confi rmed COVID-19 While That Case Was Ill? No [email or web address] Information not available 07/25/2022 In The 14 Days Before Symptom Onset, Have You Had Close Contact With A Person Who Is Under Investigation For COVID-19 While That Person Was Ill? No [email or web address] Information not available 07/25/2022 What Type Of Diet Are You Following? REGULAR [email or web address] Information not available 07/25/2022 What Is The Highest Grade Or Level Of School You Have Completed Or The Highest Degree You Have Received? [id number] [email or web address] Information not available 07/25/2022 Have There Been Any Changes To Your Family Or Social Situation? No [email or web address] Information not available 07/25/2022 [facility] [email or web address] Information not available 07/25/2022 What Was The Date Of Your Most Recent Tobacco Screening? 01/09/2022 [id number] Information not available 05/31/2022 How Many Children Do You Have? 5 Yes [email or web address] Information not available 07/25/2022 Do You Have Any Pets? No [email or web address] Information not available 07/25/2022 What Is Your Relationship Status? Single [email or web address] Information not available 07/25/2022 Do You Use Your Seat Belt Or Car Seat Routinely? Yes [email or web address] Information not available 07/25/2022 Do You Have Smoke And Carbon Monoxide Detectors In Your Home? Yes [email or web address] Information not available 07/25/2022 Are You Passively Exposed To Smoke? No [email or web address] Information not available 07/25/2022 Are There Any Smokers In Your House? No [email or web address] Information not available 07/25/2022 Do You Use Sunscreen Routinely? Yes [email or web address] Information not available 07/25/2022 Has Tobacco Cessation Counseling Been Provided? No [id number] Information not available 05/31/2022 Have You Recently Traveled Abroad? No [email or web address] Information not available 07/25/2022 Are You Currently In School? No [email or web address] Information not available 07/25/2022 Do You Have Any Dietary Restrictions? Yes No Pork [email or web address] Information not available 07/25/2022 Sex: Unknown Functional Status Question Answer Note LastModified by Organizat ion Details LastModified Time Do you use any illicit or recreational drugs? No [id number] Information not available 05/31/2022 Do you or have you ever used any other forms of tobacco or nicotine? No [id number] Information not available 05/31/2022 What is your level of alcohol consumption? None [id number] Information not available 05/31/2022 Are you currently employed? 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 [id number] [email or web address] Information not available 07/25/2022 Family History Relationship Description Onset Age of this Age Resolved Age Notes LastModified by Organization Details LastModified Time Father Hypertensive disorder [email or web address] Not available 2022 12:04:32 Father Diabetes mellitus [email or web address] Not available 2022 12:05:05 Sister Hypertensive disorder [email or web address] Not available 2022 12:04:32 Mother Heart disease stent put in [email or web address] Not available 07/25/2022 12:04:58 Medical History No medical history recorded. Past Encounters Encounter ID Performer Location Encounter Start Date Encounter Closed Date Diagnosis/Indication Diagnosis SNOMED-CT Code Diagnosis ICD10 Code Diagnosis IMO Codes Diagnosis Note [id number] SHANNON [place]on IGRATION_ DEFAULT_1 _1 , 01/09/2022 00:00:00 01/27/2022 12:25:14 [id number] SHANNON Dubon IGRATION_ DEFAULT_1 _1 , 02/13/2022 00:00:00 02/13/2022 16:18:18 [id number] Rich Stroud DPM [facility] [place] [address] [place] [address] 06/22/2022 10:14:08 06/22/2022 11:28:08 Onychomycosis of toenails 922928604 B35.1 Specimens today for ERLINDA and PAS stainlabs ordered review liver function testfollow -up in 1 month Adult heal th examination 817068097 Z00.00 Referral to PCP [id number] Payam Bustos MD [address] [address] 07/25/2022 11:47:58 07/25/2022 12:36:21 Atypical chest pain 741933680 R07.89 Pleuritic pain 3130551 R 07.81 Ex-smoker 5722612 Z87.89 1 Family his tory of Cardiovascular disease 923269180 Z82.49 Abscess of left axilla 3665959022 5979518 L02.412 [id number] Rich Stroud DPM [facility] [place] [address] [place] [address] 07/27/2022 10:17:10 07/27/2022 10:53:49 Onychomycosis of toenails 780049057 B35.1 Specimens today for ERLINDA and PAS stain- Both negativele ft great toe and 2ndfollow- up in 3 months, if nail continues to be thick will perform total nail avulsion, left great toe Dystrophia unguium 27100 009 L60.3 as above [id number] Payam Bustos MD [address] [address] 08/09/2022 10:43:53 08/09/2022 11:16:05 Adult health examination 053980148 Z00.00 Atypical chest pain 1025 15116 R07.89 Fatigue 43931328 R53.83 Screening colonoscopy 44 9241977 Z12.11 Sebaceous cyst of skin 207172136 L72.3 Lt axilla Chronic low back pain 27 3248416 M54.50 [id number] Payam Bustos MD [address] [address] 08/22/2022 09:34:59 08/22/2022 09:51:54 [id number] Payam Bustos MD [address] [address] 08/22/2022 15:17:18 08/22/2022 15:54:37 Atypical chest pain 200282882 R07.89 Fatigue 40887816 R53.83 Sebaceous cyst of skin 194808898 L72.3 Lt axilla Chronic low back pain 27 0794603 M54.50 Vitamin D deficiency 347 68774 E55.9 [id number] Payam Bustos MD [address] [address] 05/08/2023 15:08:13 05/08/2023 15:42:11 Seen in emergency clinic 685232824 Z76.89 UC Furuncle o f left axilla 6632549557 7715904 L02.422 Folliculitis 36923585 L7 3.9 Lt axilla Vitamin D deficiency 347 25314 E55.9 [id number] Payam Bustos MD [address] [address] 06/06/2023 14:31:40 06/06/2023 14:54:20 Furuncle of left axilla 2360514977 7462818 L02.422 B/L Folliculitis 60480305 L7 3.9 B/L Abscess of left axilla 7612347286 0505205 L02.412 B/L [id number] Jarocho gardner MD [facility] General Surgery [address] [facility], [address] [address] 06/26/2023 11:10:31 06/26/2023 12:01:23 Hidradenitis suppurativa 02071064 L73.2 Bilat Axillary [id number] Jarocho gardner MD [facility] General Surgery [address] [facility] [address] [place] [address] 07/10/2023 12:11:18 07/10/2023 12:29:45 [id number] Jarocho gardner MD [facility] General Surgery [address] [facility] [address] [place] [address] 07/17/2023 11:59:18 07/17/2023 14:09:32 [id number] Payam Bustos MD [address] [address] 02/26/2024 12:07:57 02/26/2024 12:50:25 Adult health examination 838489357 Z00.00 Family his tory of diabetes mellitus 940410091 Z83.3 Screening for disorder 808930037 Z13.9 Screening colonoscopy 44 7273673 Z12.11 Recurrent skin infection [id number] L08.9 Erectile dysfunction 860 077615 F52.21 Family his tory of Cardiovascular disease 458013456 Z82.49 [id number] Payam Bustos MD [address] [address] 07/01/2024 10:48:21 07/01/2024 11:07:14 Adult health examination [id number] Z00.00 Family his tory of diabetes mellitus [id number] Z83.3 Screening for disorder 706531510 Z13.9 Screening colonoscopy 44 8536620 Z12.11 Recurrent skin infection 893097469 L08.9 Erectile dysfunction 860 895188 F52.21 Family his tory of Cardiovascular disease 865465683 Z82.49 Health Concerns Section Related Observation LastModified by Organization Detai ls LastModified Time None Recorded Concern Status LastModified by Organization Details LastModified Time None Recorded Advance Directives Directive N: Payers Insurance Date Sequence Insurance Name Policy Number Policy Elliott Covered Member ID Elliott Member ID Guarantor Name 08/25/2024 1 [facility] - DOS ON OR AFTER 2020 - DUAL ELIGIBLE (MEDICARE REPLACEMENT/AD VANTAGE - HMO) Keith Vega [id number] Keith Vega 07/11/2024 2 [place] Keith eVga [id number] Keith Vega 07/11/2024 1 [facility] - DOS ON OR AFTER 20 (MEDICAID REPLACEMENT - HMO) Keith Vega [id number] Keith Vega Notes Date Note Type Note Provider Name and Address Organization Details Recorded Time 06/26/2023 text/html patient complains of painful draining abscesses bilateral armpit that he has had for approximately 6 weeks. Started on the left side and now right side. Was seen in acute care and had drainage performed. Apparently with drainage of the right and a little bit of overlap. Pain is controllable. Denies previous episodes. Denies fevers or chills. Jarocho Sawant MD [address], [place], [address], [facility] 06/26/2023 13:41:45 07/10/2023 text/html no complaints Jarocho Sawant MD [address], [place], [address], [facility] 07/10/2023 12:24:00 07/17/2023 text/html no complaints Jarocho Sawant MD [address], [place], [address], [employer] 07/17/2023 13:56:35 02/26/2024 text/html Pt is here for his annual exam. Doing overall well. C/o cysts over both his axilla for last few yrs. Pt has seen Surgeon for this in 07/24 and got I&D done, but cysts are still there. So pt wants to see another specialist for it. Last visit in 08/22. Payam Bustos MD [address], [place], [address], [facility] 02/26/2024 12:45:04 07/01/2024 text/html Pt is here for his labs and chronic conditions. Doing overall same. Denies any new concern. Last visit in 02/23 and pt has not gone for any labs yet. Pt has not seen Derm and GI yet. C/o cysts over both his axilla for last few yrs. Pt has seen Surgeon for this in 07/24 and got I&D done, but cysts are still there. So pt wants to see another specialist for it. Pt has seen Cardio and they did testing for him and all came back good as per pt. No concern with it. Payam Bustos MD [address] [place] [address], [facility] [address], [place], [address], [facility] 07/01/2024 11:23:44
--- NOTE | 2025-03-08 16:33 | ED.EXTPRO ---
HPI - Extremity Problem General Chief complaint: Extremity Problem,Nontraumatic <Gricelda Doyle APRN - Last Filed: 03/09/25 02:41> Stated complaint: cut on R. shannon - concern for infection <Gricelda Doyle APRN - Last Filed: 03/09/25 02:41> Time Seen by Provider: 03/08/25 15:31 <Gricelda Doyle APRN - Last Filed: 03/09/25 02:41> History of Present Illness HPI Narrative: Patient is a 50-year-old male who presents to the ER with a right lower extremity wound with associated swelling. He reports he 1st noticed the wound about 1 month ago as a pimple. Patient reports he has completed a round of both Bactrim and Keflex oral antibiotics. He denies any recent calf pain, fevers, right knee pain, or decreased range of motion in his joints. Patient reports he is not diabetic. He endorses ?slight drainage from the wound but no significant purulent drainage. Patient denies any other medical history relevant to this ER visit. He reports he completed his last dose of oral antibiotics 3 days ago. Patient reports he has taken Bactrim, Keflex, and doxycycline. <Gricelda Doyle APRN - Last Filed: 03/09/25 02:41> Related Data Allergies/Adverse reactions: Allergies Allergy/AdvReac Type Severity Reaction Status Date / Time No Known Allergies Allergy Verified 03/12/25 14:25 <Gricelda Doyle APRN - Last Filed: 03/09/25 02:41> Review of Systems Review of Systems: All systems reviewed & are unremarkable except as noted in HPI and below <Gricelda Doyle APRN - Last Filed: 03/09/25 02:41> PMFSH Past Medical History Medical History: Medical History Hx of chronic arthritis Hx of seasonal allergies Kidney stones <Gricelda Doyle APRN - Last Filed: 03/09/25 02:41> Surgical History Surgical History: Surgical History History of ankle surgery left for fracture Previous back surgery <Gricelda Doyle APRN - Last Filed: 03/09/25 02:41> Family History Family History: Family History Father Diabetes mellitus Mother Heart disease Sibling Hypertension <Gricelda Doyle APRN - Last Filed: 03/09/25 02:41> Social History Social History: Social History (Updated 03/12/25 @ 14:30 by Junie Carballo MA) Smoking status: Unknown if ever smoked Tobacco type: cigars Alcohol intake: current Alcohol use details: rare use Substance use: unknown Living arrangements: alone Gender identity (if verbalized by the patient): Male <Gricelda Doyle APRN - Last Filed: 03/09/25 02:41> Exam Narrative: GENERAL: Well appearing, well-nourished, non-toxic, in no acute distress. HEAD: Normocephalic, atraumatic. NECK: Supple. No adenopathy, no masses. RESPIRATORY: Airway patent, respirations nonlabored. Clear to auscultation bilaterally, no rales, rhonchi, wheezing. CARDIOVASCULAR: Regular rate and rhythm without murmurs, rubs, or gallops. Peripheral pulses 2+ and equal bilaterally. ABDOMINAL: Soft, nontender, nondistended, no hepatosplenomegaly. Normoactive BS. MUSCULOSKELETAL: Moves all extremities. Strength/ROM intact without gross deformities. SKIN: Warm, dry, normal color. No rashes. RLE palpable abscess to patient's right anterior lower extremity, surrounding redness and swelling, area feels tight. Area of necrosis approximately quarter-sized on top of wound. NEURO: A&O X3. Speech clear. Cranial nerves II-XII intact. No ataxic movements. PSYCHIATRIC: Appropriate mood and affect. Normal interaction. <Gricelda Doyle APRN - Last Filed: 03/09/25 02:41> Course Course Emergency Course: 1737: Patient has had a 74 hour ER stay. He has been receiving IV vancomycin and cefepime. He has had improvement of the redness and of the pain in his lower extremities bilaterally. I have called General surgery and they are happy to evaluate the patient in clinic, the physician's hospital administrative assistant from this General surgery office is also evaluated the patient the bedside. Patient be discharged on oral linezolid and can follow-up with his PCP as well as follow-up with General surgery. Patient's inflammatory markers or normal it is not felt that he needs emergent transfer to a tertiary care center that has no of bed availability for a dermatology in heme/onc consultation. We did try contacting the patients PCP but did not receive a return call. <Raza Silva MD - Last Filed: 03/11/25 17:42> ADULT LITERACY TEACHER/PA Physician Supervision This visit was performed by both a physician and an APC. I performed all aspects of the MDM as documented. <Neel Sandoval MD - Last Filed: 03/18/25 06:59> Reevaluation(s) Reevaluation #1: I spoke with patient. He reports nonhealing wound for 1 month . He has been having significant pain that is worse at night. He reports has been on antibiotics multiple times without improvement in his wound. He is awaiting transfer to [facility] to be evaluated by middle school guidance counselor for biopsy and treatment for possible pyoderma gangrenoma <Angella Adams MD - Last Filed: 03/09/25 21:17> Date: 03/09/25 <Angella Adams MD - Last Filed: 03/09/25 21:17> Time: 07:05 <Angella Adams MD - Last Filed: 03/09/25 21:17> Reevaluation #2: Care turned over to Dr. Neel Sandoval. Patient is awaiting transfer to [facility] <Angella Adams MD - Last Filed: 03/09/25 21:17> Date: 03/09/25 <Angella Adams MD - Last Filed: 03/09/25 21:17> Time: 19:00 <Angella Adams MD - Last Filed: 03/09/25 21:17> Reevaluation #3: 2:55 AM 03/11 Patient is resting comfortably. Attempted to get the patient admitted to the hospitalist but there are no hospital beds available. [facility] was updated on the patient's status. Bed is still not available at [facility]. <Neel Sandoval MD - Last Filed: 03/18/25 06:59> Vital Signs Vital signs: Vital Signs Temperature 97.6 F 03/08/25 15:26 Pulse Rate 63 03/08/25 15:26 Respiratory Rate 20 03/08/25 15:26 Blood Pressure 119/71 03/08/25 15:26 Pulse Oximetry 100 03/08/25 15:26 Oxygen Delivery Room Air 03/08/25 15:26 Temperature 98.8 F 03/11/25 19:33 Pulse Rate 62 03/11/25 19:33 Respiratory Rate 16 03/11/25 19:33 Blood Pressure 116/89 03/11/25 19:33 Pulse Oximetry 100 03/11/25 19:33 Oxygen Delivery Room Air 03/08/25 15:26 <Gricelda Doyle, CHASER TAR - Last Filed: 03/09/25 02:41> Vital Signs Temperature 97.6 F 03/08/25 15:26 Pulse Rate 63 03/08/25 15:26 Respiratory Rate 20 03/08/25 15:26 Blood Pressure 119/71 03/08/25 15:26 Pulse Oximetry 100 03/08/25 15:26 Oxygen Delivery Room Air 03/08/25 15:26 Temperature 98.8 F 03/11/25 19:33 Pulse Rate 62 03/11/25 19:33 Respiratory Rate 16 03/11/25 19:33 Blood Pressure 116/89 03/11/25 19:33 Pulse Oximetry 100 03/11/25 19:33 Oxygen Delivery Room Air 03/08/25 15:26 <Neel Sandoval MD - Last Filed: 03/18/25 06:59> Vital Signs Temperature 97.6 F 03/08/25 15:26 Pulse Rate 63 03/08/25 15:26 Respiratory Rate 20 03/08/25 15:26 Blood Pressure 119/71 03/08/25 15:26 Pulse Oximetry 100 03/08/25 15:26 Oxygen Delivery Room Air 03/08/25 15:26 Temperature 98.8 F 03/11/25 19:33 Pulse Rate 62 03/11/25 19:33 Respiratory Rate 16 03/11/25 19:33 Blood Pressure 116/89 03/11/25 19:33 Pulse Oximetry 100 03/11/25 19:33 Oxygen Delivery Room Air 03/08/25 15:26 <Rios Singh DO - Last Filed: 03/09/25 08:03> Vital Signs Temperature 97.6 F 03/08/25 15:26 Pulse Rate 63 03/08/25 15:26 Respiratory Rate 20 03/08/25 15:26 Blood Pressure 119/71 03/08/25 15:26 Pulse Oximetry 100 03/08/25 15:26 Oxygen Delivery Room Air 03/08/25 15:26 Temperature 98.8 F 03/11/25 19:33 Pulse Rate 62 03/11/25 19:33 Respiratory Rate 16 03/11/25 19:33 Blood Pressure 116/89 03/11/25 19:33 Pulse Oximetry 100 03/11/25 19:33 Oxygen Delivery Room Air 03/08/25 15:26 <Angella Adams MD - Last Filed: 03/09/25 21:17> Vital Signs Temperature 97.6 F 03/08/25 15:26 Pulse Rate 63 03/08/25 15:26 Respiratory Rate 20 03/08/25 15:26 Blood Pressure 119/71 03/08/25 15:26 Pulse Oximetry 100 03/08/25 15:26 Oxygen Delivery Room Air 03/08/25 15:26 Temperature 98.8 F 03/11/25 19:33 Pulse Rate 62 03/11/25 19:33 Respiratory Rate 16 03/11/25 19:33 Blood Pressure 116/89 03/11/25 19:33 Pulse Oximetry 100 03/11/25 19:33 Oxygen Delivery Room Air 03/08/25 15:26 <Raza Silva MD - Last Filed: 03/11/25 17:42> MDM MDM Narrative Medical decision making narrative: Patient is a 50-year-old male who presents to the ER with a right lower extremity wound with associated swelling. He reports he 1st noticed the wound about 1 month ago as a pimple. Patient reports he has completed a round of both Bactrim and Keflex oral antibiotics. He denies any recent calf pain, fevers, right knee pain, or decreased range of motion in his joints. Patient reports he is not diabetic. He endorses ?slight drainage from the wound but no significant purulent drainage. Patient denies any other medical history relevant to this ER visit. He reports he completed his last dose of oral antibiotics 3 days ago. Patient reports he has taken Bactrim, Keflex, and doxycycline. Labs Ordered: CBC, CMP, PTT, INR, CRP, lactic acid, blood cultures, aerobic/anaerobic culture Imaging Ordered: Bilateral Doppler ultrasound, left tib-fib x-ray, right tib-fib x-ray Medications Ordered: 3 L normal saline IV bolus, vancomycin IV, cefepime IV, morphine IV Results: Pt's US indicates Deep Venous System:Normal flow, augmentation and compressibility. No echogenic thrombus identified. Superficial Venous System: No superficial thrombophlebitis. Soft tissues: Soft tissues demonstrate prominent inguinal lymph nodes probably reactive the largest in the right inguinal soft tissues 1.8 x 0.6 x 1.3 cm. Diagnosis: Failed outpatient treatment, pyoderma gangrenosum, LLE open wound, RLE open wound Consults: 2100- Spoke with hospitalist, Dr. Duran, who evaluated pt. He has concerns pt has pyoderma gangrenosum. This facility does not have hem/onc coverage at this time, so he requests pt transfer to a hospital with this specialty, along with dermatology specialty. 2200- Spoke with [facility]. They spoke with their hem/onc specialist who advised they are unable to consult on pt's in [place], but they advised pt transfer to their facility with admission on a medical floor, then hem/onc can consult on him once he's admitted. 2250-spoke with hospitalist at [facility] who agrees to accept patient for medical floor but she advises there will be a significant wait for a bed. She suggests continued treatment with IV antibiotics. MDM: Results of imaging and lab work shared with patient. It was advised patient be admitted to a tertiary hospital for further evaluation and treatment. Patient verbalized understanding and is in agreement with plan. 0300- Care signed out to Dr. Singh pending bed placement at outside hospital. <Gricelda Doyle, CHASER TAR - Last Filed: 03/09/25 02:41> Patient is a 50-year-old male who presents to the ER with a right lower extremity wound with associated swelling. He reports he 1st noticed the wound about 1 month ago as a pimple. Patient reports he has completed a round of both Bactrim and Keflex oral antibiotics. He denies any recent calf pain, fevers, right knee pain, or decreased range of motion in his joints. Patient reports he is not diabetic. He endorses ?slight drainage from the wound but no significant purulent drainage. Patient denies any other medical history relevant to this ER visit. He reports he completed his last dose of oral antibiotics 3 days ago. Patient reports he has taken Bactrim, Keflex, and doxycycline. Labs Ordered: CBC, CMP, PTT, INR, CRP, lactic acid, blood cultures, aerobic/anaerobic culture Imaging Ordered: Bilateral Doppler ultrasound, left tib-fib x-ray, right tib-fib x-ray Medications Ordered: 3 L normal saline IV bolus, vancomycin IV, cefepime IV, morphine IV Results: Pt's US indicates Deep Venous System:Normal flow, augmentation and compressibility. No echogenic thrombus identified. Superficial Venous System: No superficial thrombophlebitis. Soft tissues: Soft tissues demonstrate prominent inguinal lymph nodes probably reactive the largest in the right inguinal soft tissues 1.8 x 0.6 x 1.3 cm. Diagnosis: Failed outpatient treatment, pyoderma gangrenosum, LLE open wound, RLE open wound Consults: 2100- Spoke with hospitalist, Dr. Duran, who evaluated pt. He has concerns pt has pyoderma gangrenosum. This facility does not have hem/onc coverage at this time, so he requests pt transfer to a hospital with this specialty, along with dermatology specialty. 2200- Spoke with [facility]. They spoke with their hem/onc specialist who advised they are unable to consult on pt's in [place], but they advised pt transfer to their facility with admission on a medical floor, then hem/onc can consult on him once he's admitted. 2250-spoke with hospitalist at [facility] who agrees to accept patient for medical floor but she advises there will be a significant wait for a bed. She suggests continued treatment with IV antibiotics. MDM: Results of imaging and lab work shared with patient. It was advised patient be admitted to a tertiary hospital for further evaluation and treatment. Patient verbalized understanding and is in agreement with plan. 0300- Care signed out to Dr. Singh pending bed placement at outside hospital. Signed out to oncoming doc at shift change. <Rios Singh, DO - Last Filed: 03/09/25 08:03> Differential Diagnosis Differential Diagnosis: Abscess, cellulitis, outpatient treatment failure with oral antibiotics, pyoderma gangrenosum, sepsis <Gricelda Edson Doyle APRN - Last Filed: 03/09/25 02:41> Lab Data MDM Lab Attestation statement: I personally reviewed the patient's lab results. <Gricelda Edson Doyle APRN - Last Filed: 03/09/25 02:41> Result diagrams: 03/11/25 08:06 03/11/25 08:06 <Gricelda Doyle APRN - Last Filed: 03/09/25 02:41> Labs: Lab Results 03/08/25 03/09/25 03/10/25 Range/Units 17:03 06:17 07:09 WBC 9.6 (4.5-10.0) K/mm3 RBC 4.68 (4.6-6.20) M/mm3 Hgb 13.4 L (14.0-18.0) g/dL Hct 41.6 L (42.0-52.0) % MCV 88.9 (80-100) fl MCH 28.6 (26-34) pg MCHC 32.2 (32-36) g/dl RDW 13.2 (11.5-14.5) % Plt Count 328 (150-375) k/mm3 MPV 8.8 (7.4-10.4) fl Immature Gran % (Auto) 0.5 (0-0.5) % Neut % (Auto) 65.3 (45.5-73.1) % Lymph % (Auto) 24.6 (18.3-44.2) % Webster % (Auto) 7.6 (2.6-8.5) % Eos % (Auto) 1.4 (0-4.4) % Baso % (Auto) 0.6 (0.2-1.2) % Lymph # (Auto) 2.35 (0.9-3.2) K/mm3 Webster # (Auto) 0.7 H (0.1-0.6) K/mm3 Eos # (Auto) 0.1 (0-0.3) K/mm3 Baso # (Auto) 0.1 (0.0-0.1) K/mm3 Abs Immat Gran (auto) 0.05 H (0.00-0.031) K/mm3 Absolute Neuts (auto) 6.3 (1.3-6.7) K/mm3 Absolute Nucleated RBC 0.000 (0.0-0.012) K/mm3 Nucleated RBC % 0.0 (0.0-0.2) % PT 13.7 (11.1-14.7) Seconds INR 1.0 APTT 35.4 (22.3-36.8) Seconds Sodium 138 (137-145) mmol/L Potassium 3.9 (3.4-5.0) mmol/L Chloride 102 (98-107) mmol/L Carbon Dioxide 29 (22-30) mmol/L Anion Gap 7 (4-12) mmol/L BUN 13 (9-20) mg/dL Creatinine 0.98 0.83 0.96 (0.7-1.3) mg/dL Estim Creat Clear Calc 87 102 89 ml/min Estimated GFR > 60 > 60 > 60 (59 - ) Glucose 85 (65-110) mg/dL Lactic Acid 1.1 (0.7-2.0) mmol/L Calcium 9.4 (8.4-10.2) mg/dL Total Bilirubin 0.3 (0.2-1.3) mg/dL AST 28 (17-59) U/L ALT 16 (6-50) U/L Alkaline Phosphatase 75 (38-126) U/L C-Reactive Protein 0.7 (<1.0) mg/dL Total Protein 10.0 H (6.3-8.2) g/dL Albumin 4.8 (3.5-5.1) g/dL Vancomycin Trough 9.4 L (10.0-20.0) ug/mL 03/11/25 03/11/25 03/11/25 Range/Units 08:06 08:06 08:06 WBC 6.6 (4.5-10.0) K/mm3 RBC 4.34 L (4.6-6.20) M/mm3 Hgb 12.4 L (14.0-18.0) g/dL Hct 38.2 L (42.0-52.0) % MCV 88.0 (80-100) fl MCH 28.6 (26-34) pg MCHC 32.5 (32-36) g/dl RDW 12.7 (11.5-14.5) % Plt Count 296 (150-375) k/mm3 MPV 9.1 (7.4-10.4) fl Immature Gran % (Auto) 0.3 (0-0.5) % Neut % (Auto) 58.3 (45.5-73.1) % Lymph % (Auto) 27.7 (18.3-44.2) % Webster % (Auto) 11.1 H (2.6-8.5) % Eos % (Auto) 1.8 (0-4.4) % Baso % (Auto) 0.8 (0.2-1.2) % Lymph # (Auto) 1.82 (0.9-3.2) K/mm3 Webster # (Auto) 0.7 H (0.1-0.6) K/mm3 Eos # (Auto) 0.1 (0-0.3) K/mm3 Baso # (Auto) 0.1 (0.0-0.1) K/mm3 Abs Immat Gran (auto) 0.02 (0.00-0.031) K/mm3 Absolute Neuts (auto) 3.8 (1.3-6.7) K/mm3 Absolute Nucleated RBC 0.000 (0.0-0.012) K/mm3 Nucleated RBC % 0.0 (0.0-0.2) % PT (11.1-14.7) Seconds INR APTT (22.3-36.8) Seconds Sodium Cancelled 136 L (137-145) mmol/L Potassium Cancelled 4.1 (3.4-5.0) mmol/L Chloride Cancelled (98-107) mmol/L Carbon Dioxide (22-30) mmol/L Anion Gap (4-12) mmol/L BUN (9-20) mg/dL Creatinine (0.7-1.3) mg/dL Estim Creat Clear Calc ml/min Estimated GFR (59 - ) Glucose (65-110) mg/dL Lactic Acid (0.7-2.0) mmol/L Calcium (8.4-10.2) mg/dL Total Bilirubin (0.2-1.3) mg/dL AST (17-59) U/L ALT (6-50) U/L Alkaline Phosphatase (38-126) U/L C-Reactive Protein (<1.0) mg/dL Total Protein (6.3-8.2) g/dL Albumin (3.5-5.1) g/dL Vancomycin Trough (10.0-20.0) ug/mL 03/11/25 03/11/25 03/11/25 Range/Units 08:06 08:06 08:06 WBC (4.5-10.0) K/mm3 RBC (4.6-6.20) M/mm3 Hgb (14.0-18.0) g/dL Hct (42.0-52.0) % MCV (80-100) fl MCH (26-34) pg MCHC (32-36) g/dl RDW (11.5-14.5) % Plt Count (150-375) k/mm3 MPV (7.4-10.4) fl Immature Gran % (Auto) (0-0.5) % Neut % (Auto) (45.5-73.1) % Lymph % (Auto) (18.3-44.2) % Webster % (Auto) (2.6-8.5) % Eos % (Auto) (0-4.4) % Baso % (Auto) (0.2-1.2) % Lymph # (Auto) (0.9-3.2) K/mm3 Webster # (Auto) (0.1-0.6) K/mm3 Eos # (Auto) (0-0.3) K/mm3 Baso # (Auto) (0.0-0.1) K/mm3 Abs Immat Gran (auto) (0.00-0.031) K/mm3 Absolute Neuts (auto) (1.3-6.7) K/mm3 Absolute Nucleated RBC (0.0-0.012) K/mm3 Nucleated RBC % (0.0-0.2) % PT (11.1-14.7) Seconds INR APTT (22.3-36.8) Seconds Sodium (137-145) mmol/L Potassium (3.4-5.0) mmol/L Chloride 104 (98-107) mmol/L Carbon Dioxide Cancelled 29 (22-30) mmol/L Anion Gap Cancelled 3 L (4-12) mmol/L BUN Cancelled (9-20) mg/dL Creatinine (0.7-1.3) mg/dL Estim Creat Clear Calc ml/min Estimated GFR (59 - ) Glucose (65-110) mg/dL Lactic Acid (0.7-2.0) mmol/L Calcium (8.4-10.2) mg/dL Total Bilirubin (0.2-1.3) mg/dL AST (17-59) U/L ALT (6-50) U/L Alkaline Phosphatase (38-126) U/L C-Reactive Protein (<1.0) mg/dL Total Protein (6.3-8.2) g/dL Albumin (3.5-5.1) g/dL Vancomycin Trough (10.0-20.0) ug/mL 03/11/25 03/11/25 03/11/25 Range/Units 08:06 08:06 08:06 WBC (4.5-10.0) K/mm3 RBC (4.6-6.20) M/mm3 Hgb (14.0-18.0) g/dL Hct (42.0-52.0) % MCV (80-100) fl MCH (26-34) pg MCHC (32-36) g/dl RDW (11.5-14.5) % Plt Count (150-375) k/mm3 MPV (7.4-10.4) fl Immature Gran % (Auto) (0-0.5) % Neut % (Auto) (45.5-73.1) % Lymph % (Auto) (18.3-44.2) % Webster % (Auto) (2.6-8.5) % Eos % (Auto) (0-4.4) % Baso % (Auto) (0.2-1.2) % Lymph # (Auto) (0.9-3.2) K/mm3 Webster # (Auto) (0.1-0.6) K/mm3 Eos # (Auto) (0-0.3) K/mm3 Baso # (Auto) (0.0-0.1) K/mm3 Abs Immat Gran (auto) (0.00-0.031) K/mm3 Absolute Neuts (auto) (1.3-6.7) K/mm3 Absolute Nucleated RBC (0.0-0.012) K/mm3 Nucleated RBC % (0.0-0.2) % PT (11.1-14.7) Seconds INR APTT (22.3-36.8) Seconds Sodium (137-145) mmol/L Potassium (3.4-5.0) mmol/L Chloride (98-107) mmol/L Carbon Dioxide (22-30) mmol/L Anion Gap (4-12) mmol/L BUN 6 L D (9-20) mg/dL Creatinine Cancelled Cancelled 0.88 (0.7-1.3) mg/dL Estim Creat Clear Calc Cancelled ml/min Estimated GFR (59 - ) Glucose (65-110) mg/dL Lactic Acid (0.7-2.0) mmol/L Calcium (8.4-10.2) mg/dL Total Bilirubin (0.2-1.3) mg/dL AST (17-59) U/L ALT (6-50) U/L Alkaline Phosphatase (38-126) U/L C-Reactive Protein (<1.0) mg/dL Total Protein (6.3-8.2) g/dL Albumin (3.5-5.1) g/dL Vancomycin Trough (10.0-20.0) ug/mL 03/11/25 03/11/25 03/11/25 Range/Units 08:06 08:06 08:06 WBC (4.5-10.0) K/mm3 RBC (4.6-6.20) M/mm3 Hgb (14.0-18.0) g/dL Hct (42.0-52.0) % MCV (80-100) fl MCH (26-34) pg MCHC (32-36) g/dl RDW (11.5-14.5) % Plt Count (150-375) k/mm3 MPV (7.4-10.4) fl Immature Gran % (Auto) (0-0.5) % Neut % (Auto) (45.5-73.1) % Lymph % (Auto) (18.3-44.2) % Webster % (Auto) (2.6-8.5) % Eos % (Auto) (0-4.4) % Baso % (Auto) (0.2-1.2) % Lymph # (Auto) (0.9-3.2) K/mm3 Webster # (Auto) (0.1-0.6) K/mm3 Eos # (Auto) (0-0.3) K/mm3 Baso # (Auto) (0.0-0.1) K/mm3 Abs Immat Gran (auto) (0.00-0.031) K/mm3 Absolute Neuts (auto) (1.3-6.7) K/mm3 Absolute Nucleated RBC (0.0-0.012) K/mm3 Nucleated RBC % (0.0-0.2) % PT (11.1-14.7) Seconds INR APTT (22.3-36.8) Seconds Sodium (137-145) mmol/L Potassium (3.4-5.0) mmol/L Chloride (98-107) mmol/L Carbon Dioxide (22-30) mmol/L Anion Gap (4-12) mmol/L BUN (9-20) mg/dL Creatinine (0.7-1.3) mg/dL Estim Creat Clear Calc Cancelled 97 ml/min Estimated GFR Cancelled Cancelled (59 - ) Glucose (65-110) mg/dL Lactic Acid (0.7-2.0) mmol/L Calcium (8.4-10.2) mg/dL Total Bilirubin (0.2-1.3) mg/dL AST (17-59) U/L ALT (6-50) U/L Alkaline Phosphatase (38-126) U/L C-Reactive Protein (<1.0) mg/dL Total Protein (6.3-8.2) g/dL Albumin (3.5-5.1) g/dL Vancomycin Trough (10.0-20.0) ug/mL 03/11/25 03/11/25 03/11/25 Range/Units 08:06 08:06 08:06 WBC (4.5-10.0) K/mm3 RBC (4.6-6.20) M/mm3 Hgb (14.0-18.0) g/dL Hct (42.0-52.0) % MCV (80-100) fl MCH (26-34) pg MCHC (32-36) g/dl RDW (11.5-14.5) % Plt Count (150-375) k/mm3 MPV (7.4-10.4) fl Immature Gran % (Auto) (0-0.5) % Neut % (Auto) (45.5-73.1) % Lymph % (Auto) (18.3-44.2) % Webster % (Auto) (2.6-8.5) % Eos % (Auto) (0-4.4) % Baso % (Auto) (0.2-1.2) % Lymph # (Auto) (0.9-3.2) K/mm3 Webster # (Auto) (0.1-0.6) K/mm3 Eos # (Auto) (0-0.3) K/mm3 Baso # (Auto) (0.0-0.1) K/mm3 Abs Immat Gran (auto) (0.00-0.031) K/mm3 Absolute Neuts (auto) (1.3-6.7) K/mm3 Absolute Nucleated RBC (0.0-0.012) K/mm3 Nucleated RBC % (0.0-0.2) % PT (11.1-14.7) Seconds INR APTT (22.3-36.8) Seconds Sodium (137-145) mmol/L Potassium (3.4-5.0) mmol/L Chloride (98-107) mmol/L Carbon Dioxide (22-30) mmol/L Anion Gap (4-12) mmol/L BUN (9-20) mg/dL Creatinine (0.7-1.3) mg/dL Estim Creat Clear Calc ml/min Estimated GFR > 60 (59 - ) Glucose Cancelled 92 (65-110) mg/dL Lactic Acid (0.7-2.0) mmol/L Calcium Cancelled 8.9 (8.4-10.2) mg/dL Total Bilirubin Cancelled (0.2-1.3) mg/dL AST (17-59) U/L ALT (6-50) U/L Alkaline Phosphatase (38-126) U/L C-Reactive Protein (<1.0) mg/dL Total Protein (6.3-8.2) g/dL Albumin (3.5-5.1) g/dL Vancomycin Trough (10.0-20.0) ug/mL 03/11/25 03/11/25 03/11/25 Range/Units 08:06 08:06 08:06 WBC (4.5-10.0) K/mm3 RBC (4.6-6.20) M/mm3 Hgb (14.0-18.0) g/dL Hct (42.0-52.0) % MCV (80-100) fl MCH (26-34) pg MCHC (32-36) g/dl RDW (11.5-14.5) % Plt Count (150-375) k/mm3 MPV (7.4-10.4) fl Immature Gran % (Auto) (0-0.5) % Neut % (Auto) (45.5-73.1) % Lymph % (Auto) (18.3-44.2) % Webster % (Auto) (2.6-8.5) % Eos % (Auto) (0-4.4) % Baso % (Auto) (0.2-1.2) % Lymph # (Auto) (0.9-3.2) K/mm3 Webster # (Auto) (0.1-0.6) K/mm3 Eos # (Auto) (0-0.3) K/mm3 Baso # (Auto) (0.0-0.1) K/mm3 Abs Immat Gran (auto) (0.00-0.031) K/mm3 Absolute Neuts (auto) (1.3-6.7) K/mm3 Absolute Nucleated RBC (0.0-0.012) K/mm3 Nucleated RBC % (0.0-0.2) % PT (11.1-14.7) Seconds INR APTT (22.3-36.8) Seconds Sodium (137-145) mmol/L Potassium (3.4-5.0) mmol/L Chloride (98-107) mmol/L Carbon Dioxide (22-30) mmol/L Anion Gap (4-12) mmol/L BUN (9-20) mg/dL Creatinine (0.7-1.3) mg/dL Estim Creat Clear Calc ml/min Estimated GFR (59 - ) Glucose (65-110) mg/dL Lactic Acid (0.7-2.0) mmol/L Calcium (8.4-10.2) mg/dL Total Bilirubin 0.6 (0.2-1.3) mg/dL AST Cancelled 26 (17-59) U/L ALT Cancelled 13 (6-50) U/L Alkaline Phosphatase Cancelled (38-126) U/L C-Reactive Protein (<1.0) mg/dL Total Protein (6.3-8.2) g/dL Albumin (3.5-5.1) g/dL Vancomycin Trough (10.0-20.0) ug/mL 03/11/25 03/11/25 03/11/25 Range/Units 08:06 08:06 08:06 WBC (4.5-10.0) K/mm3 RBC (4.6-6.20) M/mm3 Hgb (14.0-18.0) g/dL Hct (42.0-52.0) % MCV (80-100) fl MCH (26-34) pg MCHC (32-36) g/dl RDW (11.5-14.5) % Plt Count (150-375) k/mm3 MPV (7.4-10.4) fl Immature Gran % (Auto) (0-0.5) % Neut % (Auto) (45.5-73.1) % Lymph % (Auto) (18.3-44.2) % Webster % (Auto) (2.6-8.5) % Eos % (Auto) (0-4.4) % Baso % (Auto) (0.2-1.2) % Lymph # (Auto) (0.9-3.2) K/mm3 Webster # (Auto) (0.1-0.6) K/mm3 Eos # (Auto) (0-0.3) K/mm3 Baso # (Auto) (0.0-0.1) K/mm3 Abs Immat Gran (auto) (0.00-0.031) K/mm3 Absolute Neuts (auto) (1.3-6.7) K/mm3 Absolute Nucleated RBC (0.0-0.012) K/mm3 Nucleated RBC % (0.0-0.2) % PT (11.1-14.7) Seconds INR APTT (22.3-36.8) Seconds Sodium (137-145) mmol/L Potassium (3.4-5.0) mmol/L Chloride (98-107) mmol/L Carbon Dioxide (22-30) mmol/L Anion Gap (4-12) mmol/L BUN (9-20) mg/dL Creatinine (0.7-1.3) mg/dL Estim Creat Clear Calc ml/min Estimated GFR (59 - ) Glucose (65-110) mg/dL Lactic Acid (0.7-2.0) mmol/L Calcium (8.4-10.2) mg/dL Total Bilirubin (0.2-1.3) mg/dL AST (17-59) U/L ALT (6-50) U/L Alkaline Phosphatase 60 (38-126) U/L C-Reactive Protein 0.7 (<1.0) mg/dL Total Protein Cancelled 8.0 (6.3-8.2) g/dL Albumin Cancelled 3.9 (3.5-5.1) g/dL Vancomycin Trough 17.2 (10.0-20.0) ug/mL <Gricelda Doyle, CHASER TAR - Last Filed: 03/09/25 02:41> Lab Results 03/08/25 03/09/25 03/10/25 Range/Units 17:03 06:17 07:09 WBC 9.6 (4.5-10.0) K/mm3 RBC 4.68 (4.6-6.20) M/mm3 Hgb 13.4 L (14.0-18.0) g/dL Hct 41.6 L (42.0-52.0) % MCV 88.9 (80-100) fl MCH 28.6 (26-34) pg MCHC 32.2 (32-36) g/dl RDW 13.2 (11.5-14.5) % Plt Count 328 (150-375) k/mm3 MPV 8.8 (7.4-10.4) fl Immature Gran % (Auto) 0.5 (0-0.5) % Neut % (Auto) 65.3 (45.5-73.1) % Lymph % (Auto) 24.6 (18.3-44.2) % Webster % (Auto) 7.6 (2.6-8.5) % Eos % (Auto) 1.4 (0-4.4) % Baso % (Auto) 0.6 (0.2-1.2) % Lymph # (Auto) 2.35 (0.9-3.2) K/mm3 Webster # (Auto) 0.7 H (0.1-0.6) K/mm3 Eos # (Auto) 0.1 (0-0.3) K/mm3 Baso # (Auto) 0.1 (0.0-0.1) K/mm3 Abs Immat Gran (auto) 0.05 H (0.00-0.031) K/mm3 Absolute Neuts (auto) 6.3 (1.3-6.7) K/mm3 Absolute Nucleated RBC 0.000 (0.0-0.012) K/mm3 Nucleated RBC % 0.0 (0.0-0.2) % PT 13.7 (11.1-14.7) Seconds INR 1.0 APTT 35.4 (22.3-36.8) Seconds Sodium 138 (137-145) mmol/L Potassium 3.9 (3.4-5.0) mmol/L Chloride 102 (98-107) mmol/L Carbon Dioxide 29 (22-30) mmol/L Anion Gap 7 (4-12) mmol/L BUN 13 (9-20) mg/dL Creatinine 0.98 0.83 0.96 (0.7-1.3) mg/dL Estim Creat Clear Calc 87 102 89 ml/min Estimated GFR > 60 > 60 > 60 (59 - ) Glucose 85 (65-110) mg/dL Lactic Acid 1.1 (0.7-2.0) mmol/L Calcium 9.4 (8.4-10.2) mg/dL Total Bilirubin 0.3 (0.2-1.3) mg/dL AST 28 (17-59) U/L ALT 16 (6-50) U/L Alkaline Phosphatase 75 (38-126) U/L C-Reactive Protein 0.7 (<1.0) mg/dL Total Protein 10.0 H (6.3-8.2) g/dL Albumin 4.8 (3.5-5.1) g/dL Vancomycin Trough 9.4 L (10.0-20.0) ug/mL 03/11/25 03/11/25 03/11/25 Range/Units 08:06 08:06 08:06 WBC 6.6 (4.5-10.0) K/mm3 RBC 4.34 L (4.6-6.20) M/mm3 Hgb 12.4 L (14.0-18.0) g/dL Hct 38.2 L (42.0-52.0) % MCV 88.0 (80-100) fl MCH 28.6 (26-34) pg MCHC 32.5 (32-36) g/dl RDW 12.7 (11.5-14.5) % Plt Count 296 (150-375) k/mm3 MPV 9.1 (7.4-10.4) fl Immature Gran % (Auto) 0.3 (0-0.5) % Neut % (Auto) 58.3 (45.5-73.1) % Lymph % (Auto) 27.7 (18.3-44.2) % Webster % (Auto) 11.1 H (2.6-8.5) % Eos % (Auto) 1.8 (0-4.4) % Baso % (Auto) 0.8 (0.2-1.2) % Lymph # (Auto) 1.82 (0.9-3.2) K/mm3 [place] # (Auto) 0.7 H (0.1-0.6) K/mm3 Eos # (Auto) 0.1 (0-0.3) K/mm3 Baso # (Auto) 0.1 (0.0-0.1) K/mm3 Abs Immat Gran (auto) 0.02 (0.00-0.031) K/mm3 Absolute Neuts (auto) 3.8 (1.3-6.7) K/mm3 Absolute Nucleated RBC 0.000 (0.0-0.012) K/mm3 Nucleated RBC % 0.0 (0.0-0.2) % PT (11.1-14.7) Seconds INR APTT (22.3-36.8) Seconds Sodium Cancelled 136 L (137-145) mmol/L Potassium Cancelled 4.1 (3.4-5.0) mmol/L Chloride Cancelled (98-107) mmol/L Carbon Dioxide (22-30) mmol/L Anion Gap (4-12) mmol/L BUN (9-20) mg/dL Creatinine (0.7-1.3) mg/dL Estim Creat Clear Calc ml/min Estimated GFR (59 - ) Glucose (65-110) mg/dL Lactic Acid (0.7-2.0) mmol/L Calcium (8.4-10.2) mg/dL Total Bilirubin (0.2-1.3) mg/dL AST (17-59) U/L ALT (6-50) U/L Alkaline Phosphatase (38-126) U/L C-Reactive Protein (<1.0) mg/dL Total Protein (6.3-8.2) g/dL Albumin (3.5-5.1) g/dL Vancomycin Trough (10.0-20.0) ug/mL 03/11/25 03/11/25 03/11/25 Range/Units 08:06 08:06 08:06 WBC (4.5-10.0) K/mm3 RBC (4.6-6.20) M/mm3 Hgb (14.0-18.0) g/dL Hct (42.0-52.0) % MCV (80-100) fl MCH (26-34) pg MCHC (32-36) g/dl RDW (11.5-14.5) % Plt Count (150-375) k/mm3 MPV (7.4-10.4) fl Immature Gran % (Auto) (0-0.5) % Neut % (Auto) (45.5-73.1) % Lymph % (Auto) (18.3-44.2) % Webster % (Auto) (2.6-8.5) % Eos % (Auto) (0-4.4) % Baso % (Auto) (0.2-1.2) % Lymph # (Auto) (0.9-3.2) K/mm3 [place] # (Auto) (0.1-0.6) K/mm3 Eos # (Auto) (0-0.3) K/mm3 Baso # (Auto) (0.0-0.1) K/mm3 Abs Immat Gran (auto) (0.00-0.031) K/mm3 Absolute Neuts (auto) (1.3-6.7) K/mm3 Absolute Nucleated RBC (0.0-0.012) K/mm3 Nucleated RBC % (0.0-0.2) % PT (11.1-14.7) Seconds INR APTT (22.3-36.8) Seconds Sodium (137-145) mmol/L Potassium (3.4-5.0) mmol/L Chloride 104 (98-107) mmol/L Carbon Dioxide Cancelled 29 (22-30) mmol/L Anion Gap Cancelled 3 L (4-12) mmol/L BUN Cancelled (9-20) mg/dL Creatinine (0.7-1.3) mg/dL Estim Creat Clear Calc ml/min Estimated GFR (59 - ) Glucose (65-110) mg/dL Lactic Acid (0.7-2.0) mmol/L Calcium (8.4-10.2) mg/dL Total Bilirubin (0.2-1.3) mg/dL AST (17-59) U/L ALT (6-50) U/L Alkaline Phosphatase (38-126) U/L C-Reactive Protein (<1.0) mg/dL Total Protein (6.3-8.2) g/dL Albumin (3.5-5.1) g/dL Vancomycin Trough (10.0-20.0) ug/mL 03/11/25 03/11/25 03/11/25 Range/Units 08:06 08:06 08:06 WBC (4.5-10.0) K/mm3 RBC (4.6-6.20) M/mm3 Hgb (14.0-18.0) g/dL Hct (42.0-52.0) % MCV (80-100) fl MCH (26-34) pg MCHC (32-36) g/dl RDW (11.5-14.5) % Plt Count (150-375) k/mm3 MPV (7.4-10.4) fl Immature Gran % (Auto) (0-0.5) % Neut % (Auto) (45.5-73.1) % Lymph % (Auto) (18.3-44.2) % [place] % (Auto) (2.6-8.5) % Eos % (Auto) (0-4.4) % Baso % (Auto) (0.2-1.2) % Lymph # (Auto) (0.9-3.2) K/mm3 [place] # (Auto) (0.1-0.6) K/mm3 Eos # (Auto) (0-0.3) K/mm3 Baso # (Auto) (0.0-0.1) K/mm3 Abs Immat Gran (auto) (0.00-0.031) K/mm3 Absolute Neuts (auto) (1.3-6.7) K/mm3 Absolute Nucleated RBC (0.0-0.012) K/mm3 Nucleated RBC % (0.0-0.2) % PT (11.1-14.7) Seconds INR APTT (22.3-36.8) Seconds Sodium (137-145) mmol/L Potassium (3.4-5.0) mmol/L Chloride (98-107) mmol/L Carbon Dioxide (22-30) mmol/L Anion Gap (4-12) mmol/L BUN 6 L D (9-20) mg/dL Creatinine Cancelled Cancelled 0.88 (0.7-1.3) mg/dL Estim Creat Clear Calc Cancelled ml/min Estimated GFR (59 - ) Glucose (65-110) mg/dL Lactic Acid (0.7-2.0) mmol/L Calcium (8.4-10.2) mg/dL Total Bilirubin (0.2-1.3) mg/dL AST (17-59) U/L ALT (6-50) U/L Alkaline Phosphatase (38-126) U/L C-Reactive Protein (<1.0) mg/dL Total Protein (6.3-8.2) g/dL Albumin (3.5-5.1) g/dL Vancomycin Trough (10.0-20.0) ug/mL 03/11/25 03/11/25 03/11/25 Range/Units 08:06 08:06 08:06 WBC (4.5-10.0) K/mm3 RBC (4.6-6.20) M/mm3 Hgb (14.0-18.0) g/dL Hct (42.0-52.0) % MCV (80-100) fl MCH (26-34) pg MCHC (32-36) g/dl RDW (11.5-14.5) % Plt Count (150-375) k/mm3 MPV (7.4-10.4) fl Immature Gran % (Auto) (0-0.5) % Neut % (Auto) (45.5-73.1) % Lymph % (Auto) (18.3-44.2) % [place] % (Auto) (2.6-8.5) % Eos % (Auto) (0-4.4) % Baso % (Auto) (0.2-1.2) % Lymph # (Auto) (0.9-3.2) K/mm3 [place] # (Auto) (0.1-0.6) K/mm3 Eos # (Auto) (0-0.3) K/mm3 Baso # (Auto) (0.0-0.1) K/mm3 Abs Immat Gran (auto) (0.00-0.031) K/mm3 Absolute Neuts (auto) (1.3-6.7) K/mm3 Absolute Nucleated RBC (0.0-0.012) K/mm3 Nucleated RBC % (0.0-0.2) % PT (11.1-14.7) Seconds INR APTT (22.3-36.8) Seconds Sodium (137-145) mmol/L Potassium (3.4-5.0) mmol/L Chloride (98-107) mmol/L Carbon Dioxide (22-30) mmol/L Anion Gap (4-12) mmol/L BUN (9-20) mg/dL Creatinine (0.7-1.3) mg/dL Estim Creat Clear Calc Cancelled 97 ml/min Estimated GFR Cancelled Cancelled (59 - ) Glucose (65-110) mg/dL Lactic Acid (0.7-2.0) mmol/L Calcium (8.4-10.2) mg/dL Total Bilirubin (0.2-1.3) mg/dL AST (17-59) U/L ALT (6-50) U/L Alkaline Phosphatase (38-126) U/L C-Reactive Protein (<1.0) mg/dL Total Protein (6.3-8.2) g/dL Albumin (3.5-5.1) g/dL Vancomycin Trough (10.0-20.0) ug/mL 03/11/25 03/11/25 03/11/25 Range/Units 08:06 08:06 08:06 WBC (4.5-10.0) K/mm3 RBC (4.6-6.20) M/mm3 Hgb (14.0-18.0) g/dL Hct (42.0-52.0) % MCV (80-100) fl MCH (26-34) pg MCHC (32-36) g/dl RDW (11.5-14.5) % Plt Count (150-375) k/mm3 MPV (7.4-10.4) fl Immature Gran % (Auto) (0-0.5) % Neut % (Auto) (45.5-73.1) % Lymph % (Auto) (18.3-44.2) % [place] % (Auto) (2.6-8.5) % Eos % (Auto) (0-4.4) % Baso % (Auto) (0.2-1.2) % Lymph # (Auto) (0.9-3.2) K/mm3 [place] # (Auto) (0.1-0.6) K/mm3 Eos # (Auto) (0-0.3) K/mm3 Baso # (Auto) (0.0-0.1) K/mm3 Abs Immat Gran (auto) (0.00-0.031) K/mm3 Absolute Neuts (auto) (1.3-6.7) K/mm3 Absolute Nucleated RBC (0.0-0.012) K/mm3 Nucleated RBC % (0.0-0.2) % PT (11.1-14.7) Seconds INR APTT (22.3-36.8) Seconds Sodium (137-145) mmol/L Potassium (3.4-5.0) mmol/L Chloride (98-107) mmol/L Carbon Dioxide (22-30) mmol/L Anion Gap (4-12) mmol/L BUN (9-20) mg/dL Creatinine (0.7-1.3) mg/dL Estim Creat Clear Calc ml/min Estimated GFR > 60 (59 - ) Glucose Cancelled 92 (65-110) mg/dL Lactic Acid (0.7-2.0) mmol/L Calcium Cancelled 8.9 (8.4-10.2) mg/dL Total Bilirubin Cancelled (0.2-1.3) mg/dL AST (17-59) U/L ALT (6-50) U/L Alkaline Phosphatase (38-126) U/L C-Reactive Protein (<1.0) mg/dL Total Protein (6.3-8.2) g/dL Albumin (3.5-5.1) g/dL Vancomycin Trough (10.0-20.0) ug/mL 03/11/25 03/11/25 03/11/25 Range/Units 08:06 08:06 08:06 WBC (4.5-10.0) K/mm3 RBC (4.6-6.20) M/mm3 Hgb (14.0-18.0) g/dL Hct (42.0-52.0) % MCV (80-100) fl MCH (26-34) pg MCHC (32-36) g/dl RDW (11.5-14.5) % Plt Count (150-375) k/mm3 MPV (7.4-10.4) fl Immature Gran % (Auto) (0-0.5) % Neut % (Auto) (45.5-73.1) % Lymph % (Auto) (18.3-44.2) % [place] % (Auto) (2.6-8.5) % Eos % (Auto) (0-4.4) % Baso % (Auto) (0.2-1.2) % Lymph # (Auto) (0.9-3.2) K/mm3 [place] # (Auto) (0.1-0.6) K/mm3 Eos # (Auto) (0-0.3) K/mm3 Baso # (Auto) (0.0-0.1) K/mm3 Abs Immat Gran (auto) (0.00-0.031) K/mm3 Absolute Neuts (auto) (1.3-6.7) K/mm3 Absolute Nucleated RBC (0.0-0.012) K/mm3 Nucleated RBC % (0.0-0.2) % PT (11.1-14.7) Seconds INR APTT (22.3-36.8) Seconds Sodium (137-145) mmol/L Potassium (3.4-5.0) mmol/L Chloride (98-107) mmol/L Carbon Dioxide (22-30) mmol/L Anion Gap (4-12) mmol/L BUN (9-20) mg/dL Creatinine (0.7-1.3) mg/dL Estim Creat Clear Calc ml/min Estimated GFR (59 - ) Glucose (65-110) mg/dL Lactic Acid (0.7-2.0) mmol/L Calcium (8.4-10.2) mg/dL Total Bilirubin 0.6 (0.2-1.3) mg/dL AST Cancelled 26 (17-59) U/L ALT Cancelled 13 (6-50) U/L Alkaline Phosphatase Cancelled (38-126) U/L C-Reactive Protein (<1.0) mg/dL Total Protein (6.3-8.2) g/dL Albumin (3.5-5.1) g/dL Vancomycin Trough (10.0-20.0) ug/mL 03/11/25 03/11/25 03/11/25 Range/Units 08:06 08:06 08:06 WBC (4.5-10.0) K/mm3 RBC (4.6-6.20) M/mm3 Hgb (14.0-18.0) g/dL Hct (42.0-52.0) % MCV (80-100) fl MCH (26-34) pg MCHC (32-36) g/dl RDW (11.5-14.5) % Plt Count (150-375) k/mm3 MPV (7.4-10.4) fl Immature Gran % (Auto) (0-0.5) % Neut % (Auto) (45.5-73.1) % Lymph % (Auto) (18.3-44.2) % [place] % (Auto) (2.6-8.5) % Eos % (Auto) (0-4.4) % Baso % (Auto) (0.2-1.2) % Lymph # (Auto) (0.9-3.2) K/mm3 [place] # (Auto) (0.1-0.6) K/mm3 Eos # (Auto) (0-0.3) K/mm3 Baso # (Auto) (0.0-0.1) K/mm3 Abs Immat Gran (auto) (0.00-0.031) K/mm3 Absolute Neuts (auto) (1.3-6.7) K/mm3 Absolute Nucleated RBC (0.0-0.012) K/mm3 Nucleated RBC % (0.0-0.2) % PT (11.1-14.7) Seconds INR APTT (22.3-36.8) Seconds Sodium (137-145) mmol/L Potassium (3.4-5.0) mmol/L Chloride (98-107) mmol/L Carbon Dioxide (22-30) mmol/L Anion Gap (4-12) mmol/L BUN (9-20) mg/dL Creatinine (0.7-1.3) mg/dL Estim Creat Clear Calc ml/min Estimated GFR (59 - ) Glucose (65-110) mg/dL Lactic Acid (0.7-2.0) mmol/L Calcium (8.4-10.2) mg/dL Total Bilirubin (0.2-1.3) mg/dL AST (17-59) U/L ALT (6-50) U/L Alkaline Phosphatase 60 (38-126) U/L C-Reactive Protein 0.7 (<1.0) mg/dL Total Protein Cancelled 8.0 (6.3-8.2) g/dL Albumin Cancelled 3.9 (3.5-5.1) g/dL Vancomycin Trough 17.2 (10.0-20.0) ug/mL <Neel Sandoval MD - Last Filed: 03/18/25 06:59> Lab Results 03/08/25 03/09/25 03/10/25 Range/Units 17:03 06:17 07:09 WBC 9.6 (4.5-10.0) K/mm3 RBC 4.68 (4.6-6.20) M/mm3 Hgb 13.4 L (14.0-18.0) g/dL Hct 41.6 L (42.0-52.0) % MCV 88.9 (80-100) fl MCH 28.6 (26-34) pg MCHC 32.2 (32-36) g/dl RDW 13.2 (11.5-14.5) % Plt Count 328 (150-375) k/mm3 MPV 8.8 (7.4-10.4) fl Immature Gran % (Auto) 0.5 (0-0.5) % Neut % (Auto) 65.3 (45.5-73.1) % Lymph % (Auto) 24.6 (18.3-44.2) % [place] % (Auto) 7.6 (2.6-8.5) % Eos % (Auto) 1.4 (0-4.4) % Baso % (Auto) 0.6 (0.2-1.2) % Lymph # (Auto) 2.35 (0.9-3.2) K/mm3 [place] # (Auto) 0.7 H (0.1-0.6) K/mm3 Eos # (Auto) 0.1 (0-0.3) K/mm3 Baso # (Auto) 0.1 (0.0-0.1) K/mm3 Abs Immat Gran (auto) 0.05 H (0.00-0.031) K/mm3 Absolute Neuts (auto) 6.3 (1.3-6.7) K/mm3 Absolute Nucleated RBC 0.000 (0.0-0.012) K/mm3 Nucleated RBC % 0.0 (0.0-0.2) % PT 13.7 (11.1-14.7) Seconds INR 1.0 APTT 35.4 (22.3-36.8) Seconds Sodium 138 (137-145) mmol/L Potassium 3.9 (3.4-5.0) mmol/L Chloride 102 (98-107) mmol/L Carbon Dioxide 29 (22-30) mmol/L Anion Gap 7 (4-12) mmol/L BUN 13 (9-20) mg/dL Creatinine 0.98 0.83 0.96 (0.7-1.3) mg/dL Estim Creat Clear Calc 87 102 89 ml/min Estimated GFR > 60 > 60 > 60 (59 - ) Glucose 85 (65-110) mg/dL Lactic Acid 1.1 (0.7-2.0) mmol/L Calcium 9.4 (8.4-10.2) mg/dL Total Bilirubin 0.3 (0.2-1.3) mg/dL AST 28 (17-59) U/L ALT 16 (6-50) U/L Alkaline Phosphatase 75 (38-126) U/L C-Reactive Protein 0.7 (<1.0) mg/dL Total Protein 10.0 H (6.3-8.2) g/dL Albumin 4.8 (3.5-5.1) g/dL Vancomycin Trough 9.4 L (10.0-20.0) ug/mL 03/11/25 03/11/25 03/11/25 Range/Units 08:06 08:06 08:06 WBC 6.6 (4.5-10.0) K/mm3 RBC 4.34 L (4.6-6.20) M/mm3 Hgb 12.4 L (14.0-18.0) g/dL Hct 38.2 L (42.0-52.0) % MCV 88.0 (80-100) fl MCH 28.6 (26-34) pg MCHC 32.5 (32-36) g/dl RDW 12.7 (11.5-14.5) % Plt Count 296 (150-375) k/mm3 MPV 9.1 (7.4-10.4) fl Immature Gran % (Auto) 0.3 (0-0.5) % Neut % (Auto) 58.3 (45.5-73.1) % Lymph % (Auto) 27.7 (18.3-44.2) % [place] % (Auto) 11.1 H (2.6-8.5) % Eos % (Auto) 1.8 (0-4.4) % Baso % (Auto) 0.8 (0.2-1.2) % Lymph # (Auto) 1.82 (0.9-3.2) K/mm3 [place] # (Auto) 0.7 H (0.1-0.6) K/mm3 Eos # (Auto) 0.1 (0-0.3) K/mm3 Baso # (Auto) 0.1 (0.0-0.1) K/mm3 Abs Immat Gran (auto) 0.02 (0.00-0.031) K/mm3 Absolute Neuts (auto) 3.8 (1.3-6.7) K/mm3 Absolute Nucleated RBC 0.000 (0.0-0.012) K/mm3 Nucleated RBC % 0.0 (0.0-0.2) % PT (11.1-14.7) Seconds INR APTT (22.3-36.8) Seconds Sodium Cancelled 136 L (137-145) mmol/L Potassium Cancelled 4.1 (3.4-5.0) mmol/L Chloride Cancelled (98-107) mmol/L Carbon Dioxide (22-30) mmol/L Anion Gap (4-12) mmol/L BUN (9-20) mg/dL Creatinine (0.7-1.3) mg/dL Estim Creat Clear Calc ml/min Estimated GFR (59 - ) Glucose (65-110) mg/dL Lactic Acid (0.7-2.0) mmol/L Calcium (8.4-10.2) mg/dL Total Bilirubin (0.2-1.3) mg/dL AST (17-59) U/L ALT (6-50) U/L Alkaline Phosphatase (38-126) U/L C-Reactive Protein (<1.0) mg/dL Total Protein (6.3-8.2) g/dL Albumin (3.5-5.1) g/dL Vancomycin Trough (10.0-20.0) ug/mL 03/11/25 03/11/25 03/11/25 Range/Units 08:06 08:06 08:06 WBC (4.5-10.0) K/mm3 RBC (4.6-6.20) M/mm3 Hgb (14.0-18.0) g/dL Hct (42.0-52.0) % MCV (80-100) fl MCH (26-34) pg MCHC (32-36) g/dl RDW (11.5-14.5) % Plt Count (150-375) k/mm3 MPV (7.4-10.4) fl Immature Gran % (Auto) (0-0.5) % Neut % (Auto) (45.5-73.1) % Lymph % (Auto) (18.3-44.2) % [place] % (Auto) (2.6-8.5) % Eos % (Auto) (0-4.4) % Baso % (Auto) (0.2-1.2) % Lymph # (Auto) (0.9-3.2) K/mm3 [place] # (Auto) (0.1-0.6) K/mm3 Eos # (Auto) (0-0.3) K/mm3 Baso # (Auto) (0.0-0.1) K/mm3 Abs Immat Gran (auto) (0.00-0.031) K/mm3 Absolute Neuts (auto) (1.3-6.7) K/mm3 Absolute Nucleated RBC (0.0-0.012) K/mm3 Nucleated RBC % (0.0-0.2) % PT (11.1-14.7) Seconds INR APTT (22.3-36.8) Seconds Sodium (137-145) mmol/L Potassium (3.4-5.0) mmol/L Chloride 104 (98-107) mmol/L Carbon Dioxide Cancelled 29 (22-30) mmol/L Anion Gap Cancelled 3 L (4-12) mmol/L BUN Cancelled (9-20) mg/dL Creatinine (0.7-1.3) mg/dL Estim Creat Clear Calc ml/min Estimated GFR (59 - ) Glucose (65-110) mg/dL Lactic Acid (0.7-2.0) mmol/L Calcium (8.4-10.2) mg/dL Total Bilirubin (0.2-1.3) mg/dL AST (17-59) U/L ALT (6-50) U/L Alkaline Phosphatase (38-126) U/L C-Reactive Protein (<1.0) mg/dL Total Protein (6.3-8.2) g/dL Albumin (3.5-5.1) g/dL Vancomycin Trough (10.0-20.0) ug/mL 03/11/25 03/11/25 03/11/25 Range/Units 08:06 08:06 08:06 WBC (4.5-10.0) K/mm3 RBC (4.6-6.20) M/mm3 Hgb (14.0-18.0) g/dL Hct (42.0-52.0) % MCV (80-100) fl MCH (26-34) pg MCHC (32-36) g/dl RDW (11.5-14.5) % Plt Count (150-375) k/mm3 MPV (7.4-10.4) fl Immature Gran % (Auto) (0-0.5) % Neut % (Auto) (45.5-73.1) % Lymph % (Auto) (18.3-44.2) % [place] % (Auto) (2.6-8.5) % Eos % (Auto) (0-4.4) % Baso % (Auto) (0.2-1.2) % Lymph # (Auto) (0.9-3.2) K/mm3 Webster # (Auto) (0.1-0.6) K/mm3 Eos # (Auto) (0-0.3) K/mm3 Baso # (Auto) (0.0-0.1) K/mm3 Abs Immat Gran (auto) (0.00-0.031) K/mm3 Absolute Neuts (auto) (1.3-6.7) K/mm3 Absolute Nucleated RBC (0.0-0.012) K/mm3 Nucleated RBC % (0.0-0.2) % PT (11.1-14.7) Seconds INR APTT (22.3-36.8) Seconds Sodium (137-145) mmol/L Potassium (3.4-5.0) mmol/L Chloride (98-107) mmol/L Carbon Dioxide (22-30) mmol/L Anion Gap (4-12) mmol/L BUN 6 L D (9-20) mg/dL Creatinine Cancelled Cancelled 0.88 (0.7-1.3) mg/dL Estim Creat Clear Calc Cancelled ml/min Estimated GFR (59 - ) Glucose (65-110) mg/dL Lactic Acid (0.7-2.0) mmol/L Calcium (8.4-10.2) mg/dL Total Bilirubin (0.2-1.3) mg/dL AST (17-59) U/L ALT (6-50) U/L Alkaline Phosphatase (38-126) U/L C-Reactive Protein (<1.0) mg/dL Total Protein (6.3-8.2) g/dL Albumin (3.5-5.1) g/dL Vancomycin Trough (10.0-20.0) ug/mL 03/11/25 03/11/25 03/11/25 Range/Units 08:06 08:06 08:06 WBC (4.5-10.0) K/mm3 RBC (4.6-6.20) M/mm3 Hgb (14.0-18.0) g/dL Hct (42.0-52.0) % MCV (80-100) fl MCH (26-34) pg MCHC (32-36) g/dl RDW (11.5-14.5) % Plt Count (150-375) k/mm3 MPV (7.4-10.4) fl Immature Gran % (Auto) (0-0.5) % Neut % (Auto) (45.5-73.1) % Lymph % (Auto) (18.3-44.2) % Webster % (Auto) (2.6-8.5) % Eos % (Auto) (0-4.4) % Baso % (Auto) (0.2-1.2) % Lymph # (Auto) (0.9-3.2) K/mm3 Webster # (Auto) (0.1-0.6) K/mm3 Eos # (Auto) (0-0.3) K/mm3 Baso # (Auto) (0.0-0.1) K/mm3 Abs Immat Gran (auto) (0.00-0.031) K/mm3 Absolute Neuts (auto) (1.3-6.7) K/mm3 Absolute Nucleated RBC (0.0-0.012) K/mm3 Nucleated RBC % (0.0-0.2) % PT (11.1-14.7) Seconds INR APTT (22.3-36.8) Seconds Sodium (137-145) mmol/L Potassium (3.4-5.0) mmol/L Chloride (98-107) mmol/L Carbon Dioxide (22-30) mmol/L Anion Gap (4-12) mmol/L BUN (9-20) mg/dL Creatinine (0.7-1.3) mg/dL Estim Creat Clear Calc Cancelled 97 ml/min Estimated GFR Cancelled Cancelled (59 - ) Glucose (65-110) mg/dL Lactic Acid (0.7-2.0) mmol/L Calcium (8.4-10.2) mg/dL Total Bilirubin (0.2-1.3) mg/dL AST (17-59) U/L ALT (6-50) U/L Alkaline Phosphatase (38-126) U/L C-Reactive Protein (<1.0) mg/dL Total Protein (6.3-8.2) g/dL Albumin (3.5-5.1) g/dL Vancomycin Trough (10.0-20.0) ug/mL 03/11/25 03/11/25 03/11/25 Range/Units 08:06 08:06 08:06 WBC (4.5-10.0) K/mm3 RBC (4.6-6.20) M/mm3 Hgb (14.0-18.0) g/dL Hct (42.0-52.0) % MCV (80-100) fl MCH (26-34) pg MCHC (32-36) g/dl RDW (11.5-14.5) % Plt Count (150-375) k/mm3 MPV (7.4-10.4) fl Immature Gran % (Auto) (0-0.5) % Neut % (Auto) (45.5-73.1) % Lymph % (Auto) (18.3-44.2) % Webster % (Auto) (2.6-8.5) % Eos % (Auto) (0-4.4) % Baso % (Auto) (0.2-1.2) % Lymph # (Auto) (0.9-3.2) K/mm3 [place] # (Auto) (0.1-0.6) K/mm3 Eos # (Auto) (0-0.3) K/mm3 Baso # (Auto) (0.0-0.1) K/mm3 Abs Immat Gran (auto) (0.00-0.031) K/mm3 Absolute Neuts (auto) (1.3-6.7) K/mm3 Absolute Nucleated RBC (0.0-0.012) K/mm3 Nucleated RBC % (0.0-0.2) % PT (11.1-14.7) Seconds INR APTT (22.3-36.8) Seconds Sodium (137-145) mmol/L Potassium (3.4-5.0) mmol/L Chloride (98-107) mmol/L Carbon Dioxide (22-30) mmol/L Anion Gap (4-12) mmol/L BUN (9-20) mg/dL Creatinine (0.7-1.3) mg/dL Estim Creat Clear Calc ml/min Estimated GFR > 60 (59 - ) Glucose Cancelled 92 (65-110) mg/dL Lactic Acid (0.7-2.0) mmol/L Calcium Cancelled 8.9 (8.4-10.2) mg/dL Total Bilirubin Cancelled (0.2-1.3) mg/dL AST (17-59) U/L ALT (6-50) U/L Alkaline Phosphatase (38-126) U/L C-Reactive Protein (<1.0) mg/dL Total Protein (6.3-8.2) g/dL Albumin (3.5-5.1) g/dL Vancomycin Trough (10.0-20.0) ug/mL 03/11/25 03/11/25 03/11/25 Range/Units 08:06 08:06 08:06 WBC (4.5-10.0) K/mm3 RBC (4.6-6.20) M/mm3 Hgb (14.0-18.0) g/dL Hct (42.0-52.0) % MCV (80-100) fl MCH (26-34) pg MCHC (32-36) g/dl RDW (11.5-14.5) % Plt Count (150-375) k/mm3 MPV (7.4-10.4) fl Immature Gran % (Auto) (0-0.5) % Neut % (Auto) (45.5-73.1) % Lymph % (Auto) (18.3-44.2) % Webster % (Auto) (2.6-8.5) % Eos % (Auto) (0-4.4) % Baso % (Auto) (0.2-1.2) % Lymph # (Auto) (0.9-3.2) K/mm3 [place] # (Auto) (0.1-0.6) K/mm3 Eos # (Auto) (0-0.3) K/mm3 Baso # (Auto) (0.0-0.1) K/mm3 Abs Immat Gran (auto) (0.00-0.031) K/mm3 Absolute Neuts (auto) (1.3-6.7) K/mm3 Absolute Nucleated RBC (0.0-0.012) K/mm3 Nucleated RBC % (0.0-0.2) % PT (11.1-14.7) Seconds INR APTT (22.3-36.8) Seconds Sodium (137-145) mmol/L Potassium (3.4-5.0) mmol/L Chloride (98-107) mmol/L Carbon Dioxide (22-30) mmol/L Anion Gap (4-12) mmol/L BUN (9-20) mg/dL Creatinine (0.7-1.3) mg/dL Estim Creat Clear Calc ml/min Estimated GFR (59 - ) Glucose (65-110) mg/dL Lactic Acid (0.7-2.0) mmol/L Calcium (8.4-10.2) mg/dL Total Bilirubin 0.6 (0.2-1.3) mg/dL AST Cancelled 26 (17-59) U/L ALT Cancelled 13 (6-50) U/L Alkaline Phosphatase Cancelled (38-126) U/L C-Reactive Protein (<1.0) mg/dL Total Protein (6.3-8.2) g/dL Albumin (3.5-5.1) g/dL Vancomycin Trough (10.0-20.0) ug/mL 03/11/25 03/11/25 03/11/25 Range/Units 08:06 08:06 08:06 WBC (4.5-10.0) K/mm3 RBC (4.6-6.20) M/mm3 Hgb (14.0-18.0) g/dL Hct (42.0-52.0) % MCV (80-100) fl MCH (26-34) pg MCHC (32-36) g/dl RDW (11.5-14.5) % Plt Count (150-375) k/mm3 MPV (7.4-10.4) fl Immature Gran % (Auto) (0-0.5) % Neut % (Auto) (45.5-73.1) % Lymph % (Auto) (18.3-44.2) % [place] % (Auto) (2.6-8.5) % Eos % (Auto) (0-4.4) % Baso % (Auto) (0.2-1.2) % Lymph # (Auto) (0.9-3.2) K/mm3 [place] # (Auto) (0.1-0.6) K/mm3 Eos # (Auto) (0-0.3) K/mm3 Baso # (Auto) (0.0-0.1) K/mm3 Abs Immat Gran (auto) (0.00-0.031) K/mm3 Absolute Neuts (auto) (1.3-6.7) K/mm3 Absolute Nucleated RBC (0.0-0.012) K/mm3 Nucleated RBC % (0.0-0.2) % PT (11.1-14.7) Seconds INR APTT (22.3-36.8) Seconds Sodium (137-145) mmol/L Potassium (3.4-5.0) mmol/L Chloride (98-107) mmol/L Carbon Dioxide (22-30) mmol/L Anion Gap (4-12) mmol/L BUN (9-20) mg/dL Creatinine (0.7-1.3) mg/dL Estim Creat Clear Calc ml/min Estimated GFR (59 - ) Glucose (65-110) mg/dL Lactic Acid (0.7-2.0) mmol/L Calcium (8.4-10.2) mg/dL Total Bilirubin (0.2-1.3) mg/dL AST (17-59) U/L ALT (6-50) U/L Alkaline Phosphatase 60 (38-126) U/L C-Reactive Protein 0.7 (<1.0) mg/dL Total Protein Cancelled 8.0 (6.3-8.2) g/dL Albumin Cancelled 3.9 (3.5-5.1) g/dL Vancomycin Trough 17.2 (10.0-20.0) ug/mL <Rios Singh, DO - Last Filed: 03/09/25 08:03> Lab Results 03/08/25 03/09/25 03/10/25 Range/Units 17:03 06:17 07:09 WBC 9.6 (4.5-10.0) K/mm3 RBC 4.68 (4.6-6.20) M/mm3 Hgb 13.4 L (14.0-18.0) g/dL Hct 41.6 L (42.0-52.0) % MCV 88.9 (80-100) fl MCH 28.6 (26-34) pg MCHC 32.2 (32-36) g/dl RDW 13.2 (11.5-14.5) % Plt Count 328 (150-375) k/mm3 MPV 8.8 (7.4-10.4) fl Immature Gran % (Auto) 0.5 (0-0.5) % Neut % (Auto) 65.3 (45.5-73.1) % Lymph % (Auto) 24.6 (18.3-44.2) % Webster % (Auto) 7.6 (2.6-8.5) % Eos % (Auto) 1.4 (0-4.4) % Baso % (Auto) 0.6 (0.2-1.2) % Lymph # (Auto) 2.35 (0.9-3.2) K/mm3 [place] # (Auto) 0.7 H (0.1-0.6) K/mm3 Eos # (Auto) 0.1 (0-0.3) K/mm3 Baso # (Auto) 0.1 (0.0-0.1) K/mm3 Abs Immat Gran (auto) 0.05 H (0.00-0.031) K/mm3 Absolute Neuts (auto) 6.3 (1.3-6.7) K/mm3 Absolute Nucleated RBC 0.000 (0.0-0.012) K/mm3 Nucleated RBC % 0.0 (0.0-0.2) % PT 13.7 (11.1-14.7) Seconds INR 1.0 APTT 35.4 (22.3-36.8) Seconds Sodium 138 (137-145) mmol/L Potassium 3.9 (3.4-5.0) mmol/L Chloride 102 (98-107) mmol/L Carbon Dioxide 29 (22-30) mmol/L Anion Gap 7 (4-12) mmol/L BUN 13 (9-20) mg/dL Creatinine 0.98 0.83 0.96 (0.7-1.3) mg/dL Estim Creat Clear Calc 87 102 89 ml/min Estimated GFR > 60 > 60 > 60 (59 - ) Glucose 85 (65-110) mg/dL Lactic Acid 1.1 (0.7-2.0) mmol/L Calcium 9.4 (8.4-10.2) mg/dL Total Bilirubin 0.3 (0.2-1.3) mg/dL AST 28 (17-59) U/L ALT 16 (6-50) U/L Alkaline Phosphatase 75 (38-126) U/L C-Reactive Protein 0.7 (<1.0) mg/dL Total Protein 10.0 H (6.3-8.2) g/dL Albumin 4.8 (3.5-5.1) g/dL Vancomycin Trough 9.4 L (10.0-20.0) ug/mL 03/11/25 03/11/25 03/11/25 Range/Units 08:06 08:06 08:06 WBC 6.6 (4.5-10.0) K/mm3 RBC 4.34 L (4.6-6.20) M/mm3 Hgb 12.4 L (14.0-18.0) g/dL Hct 38.2 L (42.0-52.0) % MCV 88.0 (80-100) fl MCH 28.6 (26-34) pg MCHC 32.5 (32-36) g/dl RDW 12.7 (11.5-14.5) % Plt Count 296 (150-375) k/mm3 MPV 9.1 (7.4-10.4) fl Immature Gran % (Auto) 0.3 (0-0.5) % Neut % (Auto) 58.3 (45.5-73.1) % Lymph % (Auto) 27.7 (18.3-44.2) % [place] % (Auto) 11.1 H (2.6-8.5) % Eos % (Auto) 1.8 (0-4.4) % Baso % (Auto) 0.8 (0.2-1.2) % Lymph # (Auto) 1.82 (0.9-3.2) K/mm3 [place] # (Auto) 0.7 H (0.1-0.6) K/mm3 Eos # (Auto) 0.1 (0-0.3) K/mm3 Baso # (Auto) 0.1 (0.0-0.1) K/mm3 Abs Immat Gran (auto) 0.02 (0.00-0.031) K/mm3 Absolute Neuts (auto) 3.8 (1.3-6.7) K/mm3 Absolute Nucleated RBC 0.000 (0.0-0.012) K/mm3 Nucleated RBC % 0.0 (0.0-0.2) % PT (11.1-14.7) Seconds INR APTT (22.3-36.8) Seconds Sodium Cancelled 136 L (137-145) mmol/L Potassium Cancelled 4.1 (3.4-5.0) mmol/L Chloride Cancelled (98-107) mmol/L Carbon Dioxide (22-30) mmol/L Anion Gap (4-12) mmol/L BUN (9-20) mg/dL Creatinine (0.7-1.3) mg/dL Estim Creat Clear Calc ml/min Estimated GFR (59 - ) Glucose (65-110) mg/dL Lactic Acid (0.7-2.0) mmol/L Calcium (8.4-10.2) mg/dL Total Bilirubin (0.2-1.3) mg/dL AST (17-59) U/L ALT (6-50) U/L Alkaline Phosphatase (38-126) U/L C-Reactive Protein (<1.0) mg/dL Total Protein (6.3-8.2) g/dL Albumin (3.5-5.1) g/dL Vancomycin Trough (10.0-20.0) ug/mL 03/11/25 03/11/25 03/11/25 Range/Units 08:06 08:06 08:06 WBC (4.5-10.0) K/mm3 RBC (4.6-6.20) M/mm3 Hgb (14.0-18.0) g/dL Hct (42.0-52.0) % MCV (80-100) fl MCH (26-34) pg MCHC (32-36) g/dl RDW (11.5-14.5) % Plt Count (150-375) k/mm3 MPV (7.4-10.4) fl Immature Gran % (Auto) (0-0.5) % Neut % (Auto) (45.5-73.1) % Lymph % (Auto) (18.3-44.2) % [place] % (Auto) (2.6-8.5) % Eos % (Auto) (0-4.4) % Baso % (Auto) (0.2-1.2) % Lymph # (Auto) (0.9-3.2) K/mm3 [place] # (Auto) (0.1-0.6) K/mm3 Eos # (Auto) (0-0.3) K/mm3 Baso # (Auto) (0.0-0.1) K/mm3 Abs Immat Gran (auto) (0.00-0.031) K/mm3 Absolute Neuts (auto) (1.3-6.7) K/mm3 Absolute Nucleated RBC (0.0-0.012) K/mm3 Nucleated RBC % (0.0-0.2) % PT (11.1-14.7) Seconds INR APTT (22.3-36.8) Seconds Sodium (137-145) mmol/L Potassium (3.4-5.0) mmol/L Chloride 104 (98-107) mmol/L Carbon Dioxide Cancelled 29 (22-30) mmol/L Anion Gap Cancelled 3 L (4-12) mmol/L BUN Cancelled (9-20) mg/dL Creatinine (0.7-1.3) mg/dL Estim Creat Clear Calc ml/min Estimated GFR (59 - ) Glucose (65-110) mg/dL Lactic Acid (0.7-2.0) mmol/L Calcium (8.4-10.2) mg/dL Total Bilirubin (0.2-1.3) mg/dL AST (17-59) U/L ALT (6-50) U/L Alkaline Phosphatase (38-126) U/L C-Reactive Protein (<1.0) mg/dL Total Protein (6.3-8.2) g/dL Albumin (3.5-5.1) g/dL Vancomycin Trough (10.0-20.0) ug/mL 03/11/25 03/11/25 03/11/25 Range/Units 08:06 08:06 08:06 WBC (4.5-10.0) K/mm3 RBC (4.6-6.20) M/mm3 Hgb (14.0-18.0) g/dL Hct (42.0-52.0) % MCV (80-100) fl MCH (26-34) pg MCHC (32-36) g/dl RDW (11.5-14.5) % Plt Count (150-375) k/mm3 MPV (7.4-10.4) fl Immature Gran % (Auto) (0-0.5) % Neut % (Auto) (45.5-73.1) % Lymph % (Auto) (18.3-44.2) % [place] % (Auto) (2.6-8.5) % Eos % (Auto) (0-4.4) % Baso % (Auto) (0.2-1.2) % Lymph # (Auto) (0.9-3.2) K/mm3 [place] # (Auto) (0.1-0.6) K/mm3 Eos # (Auto) (0-0.3) K/mm3 Baso # (Auto) (0.0-0.1) K/mm3 Abs Immat Gran (auto) (0.00-0.031) K/mm3 Absolute Neuts (auto) (1.3-6.7) K/mm3 Absolute Nucleated RBC (0.0-0.012) K/mm3 Nucleated RBC % (0.0-0.2) % PT (11.1-14.7) Seconds INR APTT (22.3-36.8) Seconds Sodium (137-145) mmol/L Potassium (3.4-5.0) mmol/L Chloride (98-107) mmol/L Carbon Dioxide (22-30) mmol/L Anion Gap (4-12) mmol/L BUN 6 L D (9-20) mg/dL Creatinine Cancelled Cancelled 0.88 (0.7-1.3) mg/dL Estim Creat Clear Calc Cancelled ml/min Estimated GFR (59 - ) Glucose (65-110) mg/dL Lactic Acid (0.7-2.0) mmol/L Calcium (8.4-10.2) mg/dL Total Bilirubin (0.2-1.3) mg/dL AST (17-59) U/L ALT (6-50) U/L Alkaline Phosphatase (38-126) U/L C-Reactive Protein (<1.0) mg/dL Total Protein (6.3-8.2) g/dL Albumin (3.5-5.1) g/dL Vancomycin Trough (10.0-20.0) ug/mL 03/11/25 03/11/25 03/11/25 Range/Units 08:06 08:06 08:06 WBC (4.5-10.0) K/mm3 RBC (4.6-6.20) M/mm3 Hgb (14.0-18.0) g/dL Hct (42.0-52.0) % MCV (80-100) fl MCH (26-34) pg MCHC (32-36) g/dl RDW (11.5-14.5) % Plt Count (150-375) k/mm3 MPV (7.4-10.4) fl Immature Gran % (Auto) (0-0.5) % Neut % (Auto) (45.5-73.1) % Lymph % (Auto) (18.3-44.2) % [place] % (Auto) (2.6-8.5) % Eos % (Auto) (0-4.4) % Baso % (Auto) (0.2-1.2) % Lymph # (Auto) (0.9-3.2) K/mm3 [place] # (Auto) (0.1-0.6) K/mm3 Eos # (Auto) (0-0.3) K/mm3 Baso # (Auto) (0.0-0.1) K/mm3 Abs Immat Gran (auto) (0.00-0.031) K/mm3 Absolute Neuts (auto) (1.3-6.7) K/mm3 Absolute Nucleated RBC (0.0-0.012) K/mm3 Nucleated RBC % (0.0-0.2) % PT (11.1-14.7) Seconds INR APTT (22.3-36.8) Seconds Sodium (137-145) mmol/L Potassium (3.4-5.0) mmol/L Chloride (98-107) mmol/L Carbon Dioxide (22-30) mmol/L Anion Gap (4-12) mmol/L BUN (9-20) mg/dL Creatinine (0.7-1.3) mg/dL Estim Creat Clear Calc Cancelled 97 ml/min Estimated GFR Cancelled Cancelled (59 - ) Glucose (65-110) mg/dL Lactic Acid (0.7-2.0) mmol/L Calcium (8.4-10.2) mg/dL Total Bilirubin (0.2-1.3) mg/dL AST (17-59) U/L ALT (6-50) U/L Alkaline Phosphatase (38-126) U/L C-Reactive Protein (<1.0) mg/dL Total Protein (6.3-8.2) g/dL Albumin (3.5-5.1) g/dL Vancomycin Trough (10.0-20.0) ug/mL 03/11/25 03/11/25 03/11/25 Range/Units 08:06 08:06 08:06 WBC (4.5-10.0) K/mm3 RBC (4.6-6.20) M/mm3 Hgb (14.0-18.0) g/dL Hct (42.0-52.0) % MCV (80-100) fl MCH (26-34) pg MCHC (32-36) g/dl RDW (11.5-14.5) % Plt Count (150-375) k/mm3 MPV (7.4-10.4) fl Immature Gran % (Auto) (0-0.5) % Neut % (Auto) (45.5-73.1) % Lymph % (Auto) (18.3-44.2) % [place] % (Auto) (2.6-8.5) % Eos % (Auto) (0-4.4) % Baso % (Auto) (0.2-1.2) % Lymph # (Auto) (0.9-3.2) K/mm3 [place] # (Auto) (0.1-0.6) K/mm3 Eos # (Auto) (0-0.3) K/mm3 Baso # (Auto) (0.0-0.1) K/mm3 Abs Immat Gran (auto) (0.00-0.031) K/mm3 Absolute Neuts (auto) (1.3-6.7) K/mm3 Absolute Nucleated RBC (0.0-0.012) K/mm3 Nucleated RBC % (0.0-0.2) % PT (11.1-14.7) Seconds INR APTT (22.3-36.8) Seconds Sodium (137-145) mmol/L Potassium (3.4-5.0) mmol/L Chloride (98-107) mmol/L Carbon Dioxide (22-30) mmol/L Anion Gap (4-12) mmol/L BUN (9-20) mg/dL Creatinine (0.7-1.3) mg/dL Estim Creat Clear Calc ml/min Estimated GFR > 60 (59 - ) Glucose Cancelled 92 (65-110) mg/dL Lactic Acid (0.7-2.0) mmol/L Calcium Cancelled 8.9 (8.4-10.2) mg/dL Total Bilirubin Cancelled (0.2-1.3) mg/dL AST (17-59) U/L ALT (6-50) U/L Alkaline Phosphatase (38-126) U/L C-Reactive Protein (<1.0) mg/dL Total Protein (6.3-8.2) g/dL Albumin (3.5-5.1) g/dL Vancomycin Trough (10.0-20.0) ug/mL 03/11/25 03/11/25 03/11/25 Range/Units 08:06 08:06 08:06 WBC (4.5-10.0) K/mm3 RBC (4.6-6.20) M/mm3 Hgb (14.0-18.0) g/dL Hct (42.0-52.0) % MCV (80-100) fl MCH (26-34) pg MCHC (32-36) g/dl RDW (11.5-14.5) % Plt Count (150-375) k/mm3 MPV (7.4-10.4) fl Immature Gran % (Auto) (0-0.5) % Neut % (Auto) (45.5-73.1) % Lymph % (Auto) (18.3-44.2) % [place] % (Auto) (2.6-8.5) % Eos % (Auto) (0-4.4) % Baso % (Auto) (0.2-1.2) % Lymph # (Auto) (0.9-3.2) K/mm3 [place] # (Auto) (0.1-0.6) K/mm3 Eos # (Auto) (0-0.3) K/mm3 Baso # (Auto) (0.0-0.1) K/mm3 Abs Immat Gran (auto) (0.00-0.031) K/mm3 Absolute Neuts (auto) (1.3-6.7) K/mm3 Absolute Nucleated RBC (0.0-0.012) K/mm3 Nucleated RBC % (0.0-0.2) % PT (11.1-14.7) Seconds INR APTT (22.3-36.8) Seconds Sodium (137-145) mmol/L Potassium (3.4-5.0) mmol/L Chloride (98-107) mmol/L Carbon Dioxide (22-30) mmol/L Anion Gap (4-12) mmol/L BUN (9-20) mg/dL Creatinine (0.7-1.3) mg/dL Estim Creat Clear Calc ml/min Estimated GFR (59 - ) Glucose (65-110) mg/dL Lactic Acid (0.7-2.0) mmol/L Calcium (8.4-10.2) mg/dL Total Bilirubin 0.6 (0.2-1.3) mg/dL AST Cancelled 26 (17-59) U/L ALT Cancelled 13 (6-50) U/L Alkaline Phosphatase Cancelled (38-126) U/L C-Reactive Protein (<1.0) mg/dL Total Protein (6.3-8.2) g/dL Albumin (3.5-5.1) g/dL Vancomycin Trough (10.0-20.0) ug/mL 03/11/25 03/11/25 03/11/25 Range/Units 08:06 08:06 08:06 WBC (4.5-10.0) K/mm3 RBC (4.6-6.20) M/mm3 Hgb (14.0-18.0) g/dL Hct (42.0-52.0) % MCV (80-100) fl MCH (26-34) pg MCHC (32-36) g/dl RDW (11.5-14.5) % Plt Count (150-375) k/mm3 MPV (7.4-10.4) fl Immature Gran % (Auto) (0-0.5) % Neut % (Auto) (45.5-73.1) % Lymph % (Auto) (18.3-44.2) % [place] % (Auto) (2.6-8.5) % Eos % (Auto) (0-4.4) % Baso % (Auto) (0.2-1.2) % Lymph # (Auto) (0.9-3.2) K/mm3 [place] # (Auto) (0.1-0.6) K/mm3 Eos # (Auto) (0-0.3) K/mm3 Baso # (Auto) (0.0-0.1) K/mm3 Abs Immat Gran (auto) (0.00-0.031) K/mm3 Absolute Neuts (auto) (1.3-6.7) K/mm3 Absolute Nucleated RBC (0.0-0.012) K/mm3 Nucleated RBC % (0.0-0.2) % PT (11.1-14.7) Seconds INR APTT (22.3-36.8) Seconds Sodium (137-145) mmol/L Potassium (3.4-5.0) mmol/L Chloride (98-107) mmol/L Carbon Dioxide (22-30) mmol/L Anion Gap (4-12) mmol/L BUN (9-20) mg/dL Creatinine (0.7-1.3) mg/dL Estim Creat Clear Calc ml/min Estimated GFR (59 - ) Glucose (65-110) mg/dL Lactic Acid (0.7-2.0) mmol/L Calcium (8.4-10.2) mg/dL Total Bilirubin (0.2-1.3) mg/dL AST (17-59) U/L ALT (6-50) U/L Alkaline Phosphatase 60 (38-126) U/L C-Reactive Protein 0.7 (<1.0) mg/dL Total Protein Cancelled 8.0 (6.3-8.2) g/dL Albumin Cancelled 3.9 (3.5-5.1) g/dL Vancomycin Trough 17.2 (10.0-20.0) ug/mL <Angella Adams MD - Last Filed: 03/09/25 21:17> Lab Results 03/08/25 03/09/25 03/10/25 Range/Units 17:03 06:17 07:09 WBC 9.6 (4.5-10.0) K/mm3 RBC 4.68 (4.6-6.20) M/mm3 Hgb 13.4 L (14.0-18.0) g/dL Hct 41.6 L (42.0-52.0) % MCV 88.9 (80-100) fl MCH 28.6 (26-34) pg MCHC 32.2 (32-36) g/dl RDW 13.2 (11.5-14.5) % Plt Count 328 (150-375) k/mm3 MPV 8.8 (7.4-10.4) fl Immature Gran % (Auto) 0.5 (0-0.5) % Neut % (Auto) 65.3 (45.5-73.1) % Lymph % (Auto) 24.6 (18.3-44.2) % [place] % (Auto) 7.6 (2.6-8.5) % Eos % (Auto) 1.4 (0-4.4) % Baso % (Auto) 0.6 (0.2-1.2) % Lymph # (Auto) 2.35 (0.9-3.2) K/mm3 [place] # (Auto) 0.7 H (0.1-0.6) K/mm3 Eos # (Auto) 0.1 (0-0.3) K/mm3 Baso # (Auto) 0.1 (0.0-0.1) K/mm3 Abs Immat Gran (auto) 0.05 H (0.00-0.031) K/mm3 Absolute Neuts (auto) 6.3 (1.3-6.7) K/mm3 Absolute Nucleated RBC 0.000 (0.0-0.012) K/mm3 Nucleated RBC % 0.0 (0.0-0.2) % PT 13.7 (11.1-14.7) Seconds INR 1.0 APTT 35.4 (22.3-36.8) Seconds Sodium 138 (137-145) mmol/L Potassium 3.9 (3.4-5.0) mmol/L Chloride 102 (98-107) mmol/L Carbon Dioxide 29 (22-30) mmol/L Anion Gap 7 (4-12) mmol/L BUN 13 (9-20) mg/dL Creatinine 0.98 0.83 0.96 (0.7-1.3) mg/dL Estim Creat Clear Calc 87 102 89 ml/min Estimated GFR > 60 > 60 > 60 (59 - ) Glucose 85 (65-110) mg/dL Lactic Acid 1.1 (0.7-2.0) mmol/L Calcium 9.4 (8.4-10.2) mg/dL Total Bilirubin 0.3 (0.2-1.3) mg/dL AST 28 (17-59) U/L ALT 16 (6-50) U/L Alkaline Phosphatase 75 (38-126) U/L C-Reactive Protein 0.7 (<1.0) mg/dL Total Protein 10.0 H (6.3-8.2) g/dL Albumin 4.8 (3.5-5.1) g/dL Vancomycin Trough 9.4 L (10.0-20.0) ug/mL 03/11/25 03/11/25 03/11/25 Range/Units 08:06 08:06 08:06 WBC 6.6 (4.5-10.0) K/mm3 RBC 4.34 L (4.6-6.20) M/mm3 Hgb 12.4 L (14.0-18.0) g/dL Hct 38.2 L (42.0-52.0) % MCV 88.0 (80-100) fl MCH 28.6 (26-34) pg MCHC 32.5 (32-36) g/dl RDW 12.7 (11.5-14.5) % Plt Count 296 (150-375) k/mm3 MPV 9.1 (7.4-10.4) fl Immature Gran % (Auto) 0.3 (0-0.5) % Neut % (Auto) 58.3 (45.5-73.1) % Lymph % (Auto) 27.7 (18.3-44.2) % [place] % (Auto) 11.1 H (2.6-8.5) % Eos % (Auto) 1.8 (0-4.4) % Baso % (Auto) 0.8 (0.2-1.2) % Lymph # (Auto) 1.82 (0.9-3.2) K/mm3 [place] # (Auto) 0.7 H (0.1-0.6) K/mm3 Eos # (Auto) 0.1 (0-0.3) K/mm3 Baso # (Auto) 0.1 (0.0-0.1) K/mm3 Abs Immat Gran (auto) 0.02 (0.00-0.031) K/mm3 Absolute Neuts (auto) 3.8 (1.3-6.7) K/mm3 Absolute Nucleated RBC 0.000 (0.0-0.012) K/mm3 Nucleated RBC % 0.0 (0.0-0.2) % PT (11.1-14.7) Seconds INR APTT (22.3-36.8) Seconds Sodium Cancelled 136 L (137-145) mmol/L Potassium Cancelled 4.1 (3.4-5.0) mmol/L Chloride Cancelled (98-107) mmol/L Carbon Dioxide (22-30) mmol/L Anion Gap (4-12) mmol/L BUN (9-20) mg/dL Creatinine (0.7-1.3) mg/dL Estim Creat Clear Calc ml/min Estimated GFR (59 - ) Glucose (65-110) mg/dL Lactic Acid (0.7-2.0) mmol/L Calcium (8.4-10.2) mg/dL Total Bilirubin (0.2-1.3) mg/dL AST (17-59) U/L ALT (6-50) U/L Alkaline Phosphatase (38-126) U/L C-Reactive Protein (<1.0) mg/dL Total Protein (6.3-8.2) g/dL Albumin (3.5-5.1) g/dL Vancomycin Trough (10.0-20.0) ug/mL 03/11/25 03/11/25 03/11/25 Range/Units 08:06 08:06 08:06 WBC (4.5-10.0) K/mm3 RBC (4.6-6.20) M/mm3 Hgb (14.0-18.0) g/dL Hct (42.0-52.0) % MCV (80-100) fl MCH (26-34) pg MCHC (32-36) g/dl RDW (11.5-14.5) % Plt Count (150-375) k/mm3 MPV (7.4-10.4) fl Immature Gran % (Auto) (0-0.5) % Neut % (Auto) (45.5-73.1) % Lymph % (Auto) (18.3-44.2) % [place] % (Auto) (2.6-8.5) % Eos % (Auto) (0-4.4) % Baso % (Auto) (0.2-1.2) % Lymph # (Auto) (0.9-3.2) K/mm3 [place] # (Auto) (0.1-0.6) K/mm3 Eos # (Auto) (0-0.3) K/mm3 Baso # (Auto) (0.0-0.1) K/mm3 Abs Immat Gran (auto) (0.00-0.031) K/mm3 Absolute Neuts (auto) (1.3-6.7) K/mm3 Absolute Nucleated RBC (0.0-0.012) K/mm3 Nucleated RBC % (0.0-0.2) % PT (11.1-14.7) Seconds INR APTT (22.3-36.8) Seconds Sodium (137-145) mmol/L Potassium (3.4-5.0) mmol/L Chloride 104 (98-107) mmol/L Carbon Dioxide Cancelled 29 (22-30) mmol/L Anion Gap Cancelled 3 L (4-12) mmol/L BUN Cancelled (9-20) mg/dL Creatinine (0.7-1.3) mg/dL Estim Creat Clear Calc ml/min Estimated GFR (59 - ) Glucose (65-110) mg/dL Lactic Acid (0.7-2.0) mmol/L Calcium (8.4-10.2) mg/dL Total Bilirubin (0.2-1.3) mg/dL AST (17-59) U/L ALT (6-50) U/L Alkaline Phosphatase (38-126) U/L C-Reactive Protein (<1.0) mg/dL Total Protein (6.3-8.2) g/dL Albumin (3.5-5.1) g/dL Vancomycin Trough (10.0-20.0) ug/mL 03/11/25 03/11/25 03/11/25 Range/Units 08:06 08:06 08:06 WBC (4.5-10.0) K/mm3 RBC (4.6-6.20) M/mm3 Hgb (14.0-18.0) g/dL Hct (42.0-52.0) % MCV (80-100) fl MCH (26-34) pg MCHC (32-36) g/dl RDW (11.5-14.5) % Plt Count (150-375) k/mm3 MPV (7.4-10.4) fl Immature Gran % (Auto) (0-0.5) % Neut % (Auto) (45.5-73.1) % Lymph % (Auto) (18.3-44.2) % [place] % (Auto) (2.6-8.5) % Eos % (Auto) (0-4.4) % Baso % (Auto) (0.2-1.2) % Lymph # (Auto) (0.9-3.2) K/mm3 [place] # (Auto) (0.1-0.6) K/mm3 Eos # (Auto) (0-0.3) K/mm3 Baso # (Auto) (0.0-0.1) K/mm3 Abs Immat Gran (auto) (0.00-0.031) K/mm3 Absolute Neuts (auto) (1.3-6.7) K/mm3 Absolute Nucleated RBC (0.0-0.012) K/mm3 Nucleated RBC % (0.0-0.2) % PT (11.1-14.7) Seconds INR APTT (22.3-36.8) Seconds Sodium (137-145) mmol/L Potassium (3.4-5.0) mmol/L Chloride (98-107) mmol/L Carbon Dioxide (22-30) mmol/L Anion Gap (4-12) mmol/L BUN 6 L D (9-20) mg/dL Creatinine Cancelled Cancelled 0.88 (0.7-1.3) mg/dL Estim Creat Clear Calc Cancelled ml/min Estimated GFR (59 - ) Glucose (65-110) mg/dL Lactic Acid (0.7-2.0) mmol/L Calcium (8.4-10.2) mg/dL Total Bilirubin (0.2-1.3) mg/dL AST (17-59) U/L ALT (6-50) U/L Alkaline Phosphatase (38-126) U/L C-Reactive Protein (<1.0) mg/dL Total Protein (6.3-8.2) g/dL Albumin (3.5-5.1) g/dL Vancomycin Trough (10.0-20.0) ug/mL 03/11/25 03/11/25 03/11/25 Range/Units 08:06 08:06 08:06 WBC (4.5-10.0) K/mm3 RBC (4.6-6.20) M/mm3 Hgb (14.0-18.0) g/dL Hct (42.0-52.0) % MCV (80-100) fl MCH (26-34) pg MCHC (32-36) g/dl RDW (11.5-14.5) % Plt Count (150-375) k/mm3 MPV (7.4-10.4) fl Immature Gran % (Auto) (0-0.5) % Neut % (Auto) (45.5-73.1) % Lymph % (Auto) (18.3-44.2) % [place] % (Auto) (2.6-8.5) % Eos % (Auto) (0-4.4) % Baso % (Auto) (0.2-1.2) % Lymph # (Auto) (0.9-3.2) K/mm3 [place] # (Auto) (0.1-0.6) K/mm3 Eos # (Auto) (0-0.3) K/mm3 Baso # (Auto) (0.0-0.1) K/mm3 Abs Immat Gran (auto) (0.00-0.031) K/mm3 Absolute Neuts (auto) (1.3-6.7) K/mm3 Absolute Nucleated RBC (0.0-0.012) K/mm3 Nucleated RBC % (0.0-0.2) % PT (11.1-14.7) Seconds INR APTT (22.3-36.8) Seconds Sodium (137-145) mmol/L Potassium (3.4-5.0) mmol/L Chloride (98-107) mmol/L Carbon Dioxide (22-30) mmol/L Anion Gap (4-12) mmol/L BUN (9-20) mg/dL Creatinine (0.7-1.3) mg/dL Estim Creat Clear Calc Cancelled 97 ml/min Estimated GFR Cancelled Cancelled (59 - ) Glucose (65-110) mg/dL Lactic Acid (0.7-2.0) mmol/L Calcium (8.4-10.2) mg/dL Total Bilirubin (0.2-1.3) mg/dL AST (17-59) U/L ALT (6-50) U/L Alkaline Phosphatase (38-126) U/L C-Reactive Protein (<1.0) mg/dL Total Protein (6.3-8.2) g/dL Albumin (3.5-5.1) g/dL Vancomycin Trough (10.0-20.0) ug/mL 03/11/25 03/11/25 03/11/25 Range/Units 08:06 08:06 08:06 WBC (4.5-10.0) K/mm3 RBC (4.6-6.20) M/mm3 Hgb (14.0-18.0) g/dL Hct (42.0-52.0) % MCV (80-100) fl MCH (26-34) pg MCHC (32-36) g/dl RDW (11.5-14.5) % Plt Count (150-375) k/mm3 MPV (7.4-10.4) fl Immature Gran % (Auto) (0-0.5) % Neut % (Auto) (45.5-73.1) % Lymph % (Auto) (18.3-44.2) % [place] % (Auto) (2.6-8.5) % Eos % (Auto) (0-4.4) % Baso % (Auto) (0.2-1.2) % Lymph # (Auto) (0.9-3.2) K/mm3 Webster # (Auto) (0.1-0.6) K/mm3 Eos # (Auto) (0-0.3) K/mm3 Baso # (Auto) (0.0-0.1) K/mm3 Abs Immat Gran (auto) (0.00-0.031) K/mm3 Absolute Neuts (auto) (1.3-6.7) K/mm3 Absolute Nucleated RBC (0.0-0.012) K/mm3 Nucleated RBC % (0.0-0.2) % PT (11.1-14.7) Seconds INR APTT (22.3-36.8) Seconds Sodium (137-145) mmol/L Potassium (3.4-5.0) mmol/L Chloride (98-107) mmol/L Carbon Dioxide (22-30) mmol/L Anion Gap (4-12) mmol/L BUN (9-20) mg/dL Creatinine (0.7-1.3) mg/dL Estim Creat Clear Calc ml/min Estimated GFR > 60 (59 - ) Glucose Cancelled 92 (65-110) mg/dL Lactic Acid (0.7-2.0) mmol/L Calcium Cancelled 8.9 (8.4-10.2) mg/dL Total Bilirubin Cancelled (0.2-1.3) mg/dL AST (17-59) U/L ALT (6-50) U/L Alkaline Phosphatase (38-126) U/L C-Reactive Protein (<1.0) mg/dL Total Protein (6.3-8.2) g/dL Albumin (3.5-5.1) g/dL Vancomycin Trough (10.0-20.0) ug/mL 03/11/25 03/11/25 03/11/25 Range/Units 08:06 08:06 08:06 WBC (4.5-10.0) K/mm3 RBC (4.6-6.20) M/mm3 Hgb (14.0-18.0) g/dL Hct (42.0-52.0) % MCV (80-100) fl MCH (26-34) pg MCHC (32-36) g/dl RDW (11.5-14.5) % Plt Count (150-375) k/mm3 MPV (7.4-10.4) fl Immature Gran % (Auto) (0-0.5) % Neut % (Auto) (45.5-73.1) % Lymph % (Auto) (18.3-44.2) % Webster % (Auto) (2.6-8.5) % Eos % (Auto) (0-4.4) % Baso % (Auto) (0.2-1.2) % Lymph # (Auto) (0.9-3.2) K/mm3 Webster # (Auto) (0.1-0.6) K/mm3 Eos # (Auto) (0-0.3) K/mm3 Baso # (Auto) (0.0-0.1) K/mm3 Abs Immat Gran (auto) (0.00-0.031) K/mm3 Absolute Neuts (auto) (1.3-6.7) K/mm3 Absolute Nucleated RBC (0.0-0.012) K/mm3 Nucleated RBC % (0.0-0.2) % PT (11.1-14.7) Seconds INR APTT (22.3-36.8) Seconds Sodium (137-145) mmol/L Potassium (3.4-5.0) mmol/L Chloride (98-107) mmol/L Carbon Dioxide (22-30) mmol/L Anion Gap (4-12) mmol/L BUN (9-20) mg/dL Creatinine (0.7-1.3) mg/dL Estim Creat Clear Calc ml/min Estimated GFR (59 - ) Glucose (65-110) mg/dL Lactic Acid (0.7-2.0) mmol/L Calcium (8.4-10.2) mg/dL Total Bilirubin 0.6 (0.2-1.3) mg/dL AST Cancelled 26 (17-59) U/L ALT Cancelled 13 (6-50) U/L Alkaline Phosphatase Cancelled (38-126) U/L C-Reactive Protein (<1.0) mg/dL Total Protein (6.3-8.2) g/dL Albumin (3.5-5.1) g/dL Vancomycin Trough (10.0-20.0) ug/mL 03/11/25 03/11/25 03/11/25 Range/Units 08:06 08:06 08:06 WBC (4.5-10.0) K/mm3 RBC (4.6-6.20) M/mm3 Hgb (14.0-18.0) g/dL Hct (42.0-52.0) % MCV (80-100) fl MCH (26-34) pg MCHC (32-36) g/dl RDW (11.5-14.5) % Plt Count (150-375) k/mm3 MPV (7.4-10.4) fl Immature Gran % (Auto) (0-0.5) % Neut % (Auto) (45.5-73.1) % Lymph % (Auto) (18.3-44.2) % Webster % (Auto) (2.6-8.5) % Eos % (Auto) (0-4.4) % Baso % (Auto) (0.2-1.2) % Lymph # (Auto) (0.9-3.2) K/mm3 Webster # (Auto) (0.1-0.6) K/mm3 Eos # (Auto) (0-0.3) K/mm3 Baso # (Auto) (0.0-0.1) K/mm3 Abs Immat Gran (auto) (0.00-0.031) K/mm3 Absolute Neuts (auto) (1.3-6.7) K/mm3 Absolute Nucleated RBC (0.0-0.012) K/mm3 Nucleated RBC % (0.0-0.2) % PT (11.1-14.7) Seconds INR APTT (22.3-36.8) Seconds Sodium (137-145) mmol/L Potassium (3.4-5.0) mmol/L Chloride (98-107) mmol/L Carbon Dioxide (22-30) mmol/L Anion Gap (4-12) mmol/L BUN (9-20) mg/dL Creatinine (0.7-1.3) mg/dL Estim Creat Clear Calc ml/min Estimated GFR (59 - ) Glucose (65-110) mg/dL Lactic Acid (0.7-2.0) mmol/L Calcium (8.4-10.2) mg/dL Total Bilirubin (0.2-1.3) mg/dL AST (17-59) U/L ALT (6-50) U/L Alkaline Phosphatase 60 (38-126) U/L C-Reactive Protein 0.7 (<1.0) mg/dL Total Protein Cancelled 8.0 (6.3-8.2) g/dL Albumin Cancelled 3.9 (3.5-5.1) g/dL Vancomycin Trough 17.2 (10.0-20.0) ug/mL <Raza Silva MD - Last Filed: 03/11/25 17:42> Imaging Data Attestation: I personally reviewed and interpreted this imaging study as follows: <Gricelda Doyle APRN - Last Filed: 03/09/25 02:41> Radiologist's impression: ITS Impressions Venous Doppler Study 03/08/25 18:35 Impression: Negative for DVT. Tibia/Fibula X-Ray 03/08/25 18:42 Impression: Postsurgical changes <Gricelda Doyle APRN - Last Filed: 03/09/25 02:41> ITS Impressions Venous Doppler Study 03/08/25 18:35 Impression: Negative for DVT. Tibia/Fibula X-Ray 03/08/25 18:42 Impression: Postsurgical changes <Neel Sandoval MD - Last Filed: 03/18/25 06:59> ITS Impressions Venous Doppler Study 03/08/25 18:35 Impression: Negative for DVT. Tibia/Fibula X-Ray 03/08/25 18:42 Impression: Postsurgical changes <Rios Singh DO - Last Filed: 03/09/25 08:03> ITS Impressions Venous Doppler Study 03/08/25 18:35 Impression: Negative for DVT. Tibia/Fibula X-Ray 03/08/25 18:42 Impression: Postsurgical changes <Angella Adams MD - Last Filed: 03/09/25 21:17> ITS Impressions Venous Doppler Study 03/08/25 18:35 Impression: Negative for DVT. Tibia/Fibula X-Ray 03/08/25 18:42 Impression: Postsurgical changes <Raza Silva MD - Last Filed: 03/11/25 17:42> Discharge Plan Discharge Clinical Impression: Cellulitis, Open wound of right lower leg, Open wound of left lower leg, Failure of outpatient treatment <Gricelda Doyle APRN - Last Filed: 03/09/25 02:41> Patient Disposition: Home <Gricelda Doyle APRN - Last Filed: 03/09/25 02:41> Condition: Stable <Gricelda Doyle APRN - Last Filed: 03/09/25 02:41> Instructions: Antibiotic Form, Acute Wounds (ED) <Gricelda Doyle APRN - Last Filed: 03/09/25 02:41> Additional Instructions: Follow-up with general surgery to have your wounds evaluated further and also have a biopsy. You are being started on oral antibiotic called linezolid that you should take twice a day. You can also do topical wound care with iodine and bandages. Call and schedule follow-up with your primary care doctor as well. Return the ER if you have worsening redness or pain in your legs, have fever over 100.4? F, or you have additional concerns. <Gricelda Doyle APRN - Last Filed: 03/09/25 02:41> Patient Language: Hong Konger <Gricelda Doyle APRN - Last Filed: 03/09/25 02:41> Prescriptions: New linezolid 600 mg tablet 600 mg PO Q12H 10 Days Qty: 20 0RF oxycodone 5 mg capsule 5 mg PO Q6H MDD 4 capsules PRN (Reason: pain) 3 Days Qty: 12 0RF <Gricelda Doyle APRN - Last Filed: 03/09/25 02:41> Follow-up/Referrals: Akash,MD Payam [Primary Care Provider, Unknown] - 3 Days Bert Frye MD [Physician, General Surgery] - 3 Days <Gricelda Doyle APRN - Last Filed: 03/09/25 02:41>
[2025-03-08 17:14] LABS: Hematocrit 41.6 % (42.0-52.0); Hemoglobin 13.4 g/dL (14.0-18.0); Immature Granulocyte Percent A 0.5 % (0-0.5); Lymphocytes Absolute Auto 2.35 K/mm3 (0.9-3.2); Mean Corpuscular HGB Conc 32.2 g/dl (32-36); Mean Corpuscular Hemoglobin 28.6 pg (26-34); Mean Corpuscular Volume 88.9 fl (80-100); Nucleated Red Blood Cells Absolute Auto 0.000 K/mm3 (0.0-0.012); Nucleated Red Blood Cells Perc 0.0 % (0.0-0.2); Platelet Count Result 328 k/mm3 (150-375); Red Blood Count 4.68 M/mm3 (4.6-6.20); White Blood Count 9.6 K/mm3 (4.5-10.0)
[2025-03-08 17:24] LABS: INR 1.0; Prothrombin Time 13.7 Seconds (11.1-14.7)
[2025-03-08] MEDS: SODIUM CHLORIDE 0.9% IV 1,000 ML 999 ML IV CONT ×2 (17:24→17:25)
[2025-03-08 17:25] LABS: Partial Thromboplastin Time 35.4 Seconds (22.3-36.8)
[2025-03-08] MEDS: MORPHINE SULFATE (*CRX) 4 MG/ML INJ IV PUSH (17:25)
[2025-03-08 17:32] LABS: Alanine Aminotransferase 16 U/L (6-50); Albumin Level 4.8 g/dL (3.5-5.1); Alkaline Phosphatase 75 U/L (38-126); Anion Gap 7 mmol/L (4-12); Aspartate Amino Transferase 28 U/L (17-59); Bilirubin,Total 0.3 mg/dL (0.2-1.3); Blood Urea Nitrogen 13 mg/dL (9-20); CRP 0.7 mg/dL (<1.0); Calcium 9.4 mg/dL (8.4-10.2); Carbon Dioxide 29 mmol/L (22-30); Chloride 102 mmol/L (98-107); Estimated CRCL calculation 87 ml/min; Estimated Glomerular Filt Rate > 60; Glucose 85 mg/dL (65-110); Potassium 3.9 mmol/L (3.4-5.0); Sodium 138 mmol/L (137-145); Total Protein 10.0 g/dL (6.3-8.2)
[2025-03-08] MEDS: SODIUM CHLORIDE 0.9% IV 700 ML 999 ML IV CONT (18:48)
[2025-03-08] MEDS: VANCOMYCIN 1,250 MG/NS 250 ML 1,250 MG/250 ML BAG 166.67 MG IVPB (18:48)
[2025-03-08] MEDS: VANCOMYCIN HCL 1,000 MG in SODIUM CHLORIDE 0.9% IV 250 ML 250 MG IVPB (22:13)
[2025-03-08] MEDS: CEFEPIME 2 GM in SODIUM CHLORIDE 0.9% IV 50 ML 100 ML IVPB (22:25)
--- NOTE | 2025-03-08 23:18 | PC.NURSE ---
This RN spoke with [facility] transfer and answered questions they had.
[2025-03-09] VITALS (39 sets, daily range): BP systolic 103–144; BP diastolic 54–87; PULSE 55–74; RESP 12–20; O2SAT 98–100
[2025-03-09] MEDS: MORPHINE SULFATE (*CRX) 4 MG/ML INJ IV PUSH ×3 (00:01→14:20)
[2025-03-09 07:04] LABS: Estimated CRCL calculation 102 ml/min; Estimated Glomerular Filt Rate > 60
--- NOTE | 2025-03-09 07:21 | PC.NURSE ---
pt denies any home medications
[2025-03-09] MEDS: VANCOMYCIN 1,500 MG/NS 500 ML 1,500 MG/500 ML BAG 250 MG IVPB ×2 (07:49→21:34)
--- NOTE | 2025-03-09 12:03 | PC.NURSE ---
This RN took pt his lunch tray, pt stated it was not what he wanted. Pt was given a menu by this RN and picked a different lunch tray. This RN ordered new lunch tray for pt.
[2025-03-10 01:42] VITALS: BP 123/76; PULSE 78; RESP 16; O2SAT 99
[2025-03-10 07:25] VITALS: BP 112/66; PULSE 70; RESP 14; O2SAT 100
[2025-03-10 07:31] LABS: Estimated CRCL calculation 89 ml/min; Estimated Glomerular Filt Rate > 60
[2025-03-10] MEDS: MORPHINE SULFATE (*CRX) 4 MG/ML INJ IV PUSH ×3 (07:38→15:44)
[2025-03-10] MEDS: VANCOMYCIN 1,750 MG/NS 500 ML 1,750 MG/500 ML BAG 250 MG IVPB ×2 (09:02→17:05)
[2025-03-10 09:10] VITALS: BP 112/66; PULSE 81; RESP 14; O2SAT 100
[2025-03-10] MEDS: CEFEPIME 2 GM in SODIUM CHLORIDE 0.9% IV 50 ML 100 ML IVPB ×2 (09:44→21:10)
--- NOTE | 2025-03-10 10:36 | PC.NURSE ---
RN spoke to Leslie at [facility] transfer center at this time regarding updates on pt condition.
[2025-03-10 11:02] VITALS: BP 124/74; PULSE 60; RESP 14; O2SAT 100
[2025-03-10 15:34] VITALS: BP 143/97; PULSE 62; RESP 14; O2SAT 100
[2025-03-10] MEDS: HYDROcodone/acetaminophen (*CRX) 10-325 MG TABLET 1 TAB PO (19:01)
[2025-03-11 01:00] VITALS: BP 114/72; PULSE 60; RESP 14; TEMP 36.9; O2SAT 99
[2025-03-11] MEDS: VANCOMYCIN 1,750 MG/NS 500 ML 1,750 MG/500 ML BAG 250 MG IVPB ×3 (01:10→17:30)
--- NOTE | 2025-03-11 02:14 | PC.NURSE ---
Spoke w/ [facility] transfer center, update on pt given along with vital signs. Pending bed placement.
[2025-03-11 08:04] VITALS: BP 130/87; PULSE 52; RESP 20; TEMP 36.8; O2SAT 100
[2025-03-11] MEDS: HYDROcodone/acetaminophen (*CRX) 10-325 MG TABLET 1 TAB PO ×2 (08:12→14:09)
[2025-03-11 08:13] LABS: Hematocrit 38.2 % (42.0-52.0); Hemoglobin 12.4 g/dL (14.0-18.0); Immature Granulocyte Percent A 0.3 % (0-0.5); Lymphocytes Absolute Auto 1.82 K/mm3 (0.9-3.2); Mean Corpuscular HGB Conc 32.5 g/dl (32-36); Mean Corpuscular Hemoglobin 28.6 pg (26-34); Mean Corpuscular Volume 88.0 fl (80-100); Nucleated Red Blood Cells Absolute Auto 0.000 K/mm3 (0.0-0.012); Nucleated Red Blood Cells Perc 0.0 % (0.0-0.2); Platelet Count Result 296 k/mm3 (150-375); Red Blood Count 4.34 M/mm3 (4.6-6.20); White Blood Count 6.6 K/mm3 (4.5-10.0)
[2025-03-11 08:38] LABS: Alanine Aminotransferase 13 U/L (6-50); Albumin Level 3.9 g/dL (3.5-5.1); Alkaline Phosphatase 60 U/L (38-126); Anion Gap 3 mmol/L (4-12); Aspartate Amino Transferase 26 U/L (17-59); Bilirubin,Total 0.6 mg/dL (0.2-1.3); Blood Urea Nitrogen 6 mg/dL (9-20); CRP 0.7 mg/dL (<1.0); Calcium 8.9 mg/dL (8.4-10.2); Carbon Dioxide 29 mmol/L (22-30); Chloride 104 mmol/L (98-107); Estimated CRCL calculation 97 ml/min; Estimated Glomerular Filt Rate > 60; Glucose 92 mg/dL (65-110); Potassium 4.1 mmol/L (3.4-5.0); Sodium 136 mmol/L (137-145); Total Protein 8.0 g/dL (6.3-8.2)
[2025-03-11] MEDS: CEFEPIME 2 GM in SODIUM CHLORIDE 0.9% IV 50 ML 100 ML IVPB (09:10)
[2025-03-11 15:16] VITALS: BP 148/88; PULSE 75; RESP 19; O2SAT 98
--- NOTE | 2025-03-11 17:29 | PC.NURSE ---
ordered patient dinner tray.
[2025-03-11 17:31] VITALS: BP 129/76; PULSE 53; RESP 15; O2SAT 100
[2025-03-11 19:33] VITALS: BP 116/89; PULSE 62; RESP 16; TEMP 37.1; O2SAT 100
--- NOTE | 2025-03-11 20:00 | PC.NURSE ---
wound care provided, tolerated well.
[2025-03-11] MEDS: oxyCODONE HCL (*CRX) 5 MG TAB IR PO (21:00)
--- NOTE | 2025-03-19 12:34 | PM.CNGS ---
Assessment and Plan Assessment and plan (1) Open wound of both lower extremities: Code(s): S81.801A - Unspecified open wound, right lower leg, initial encounter; S81.802A - Unspecified open wound, left lower leg, initial encounter Status: Acute Assessment and Plan: Etiology for his leg ulcers is unknown. He does not have any obvious vascular insufficiency on exam. He is not diabetic. There is no injury or abrasions recently to his legs. 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 The patient's pain, swelling, and redness around his bilateral lower leg ulcers has improved. We discussed with the ED physician that we could perform a skin biopsy and if they felt he was stable for discharge on oral antibiotics and f/u with Dermatology or specialists at [facility] who would treat and follow his leg wounds, then we could perform an outpatient skin biopsy in our office while he is awaiting f/u. The patient agreed and we will set him up for an outpatient appointment if he is discharged. Plan I have discussed the patient's case, recommendations, and treatment plan with Dr. Frye. History of Present Illness Consult details Consult date: 03/11/25 Reason for consult: other (Request for skin biopsy) Requesting physician: Raza Silva MD Narrative: This is a 50 yo male male with no other medical history, who presented to the ER on 03/08/25 with a right lower extremity wound with associated swelling. He reports he 1st noticed the wound about 1 month ago as a pimple. Patient reports he has completed antibiotics without improvement, both a round of Bactrim and Keflex. Denies history of diabetes, previous wounds, no autoimmune disorders, no personal/family history of IBD. In the ER, when his wounds were evaluated, there was concern for pyoderma gangrenosum and the ER attempted to transfer to [facility]. He was accepted in transfer but was awaiting bed placement for 3 days. He was on IV antibiotics during this time and monitored while boarded in [facility]. The redness and swelling, and pain associated with his bilateral lower leg wounds reportedly improved and the ER physician wanted to discharge with oral antibiotics and follow-up outpatient with Dermatology. Our service was requested for skin biopsy due to the concern of a diagnosis of pyoderma gangrenosum. He was seen then in the ER. Review of Systems Review of Systems: All systems reviewed & are unremarkable except as noted in HPI and below [facility] Past Medical History Medical History Hx of chronic arthritis Hx of seasonal allergies Kidney stones Surgical History Surgical History History of ankle surgery left for fracture Previous back surgery Family History Family History Father Diabetes mellitus Mother Heart disease Sibling Hypertension Social History Social History Smoking status: Unknown if ever smoked Tobacco type: cigars Alcohol intake: current Alcohol use details: rare use Substance use: unknown Living arrangements: alone Gender identity (if verbalized by the patient): Male Meds Home Medications and Allergies Home Medications ?Medication ?Instructions ?Recorded ?Confirmed ?Type linezolid 600 mg tablet 600 mg PO Q12H 10 days #20 tabs 03/11/25 03/13/25 Rx oxycodone 5 mg capsule 5 mg PO Q6H PRN pain 3 days #12 03/11/25 03/13/25 Rx caps Allergies Allergy/AdvReac Type Severity Reaction Status Date / Time No Known Allergies Allergy Verified 03/12/25 14:25 Exam Const: General: comfortable and no acute distress Nutritional Appearance: average body habitus Orientation/consciousness: patient oriented x3 HENMT: Head: normocephalic and atraumatic Ears: hearing grossly normal bilaterally Mouth: Yes moist mucous membranes Eyes: General: appearance normal, both eyes and all related structures Pupils: Equal, round and reactive pupils present Neck: Neck: normal visual inspection and full ROM Resp: Effort & Inspection: no respiratory distress Auscultation: clear to auscultation bilaterally Cardio: Rate: regular rate Rhythm: regular rhythm Peripheral pulses: Peripheral pulses 2+ throughout GI: Inspection: non-distended GI Palp: Yes Soft to palpation, No Tenderness to palpation present (GI) and No Guarding due to palpation present (GI) Auscultation: normal bowel sounds Skin: General skin exam: normal color Neuro: General: moves all extremities and no focal motor deficits Speech: normal speech Motor exam (neuro): 5/5 motor strength present throughout Extrem: Other: Left lateral lower leg ulcer just superior to the ankle with a black, dry, firm eschar in 100% of the wound. No purulent drainage, no fluctuance, no crepitus. Mild localized erythema around the eschar with mild swelling in this area. Right lower leg ulcer just superior to the ankle with a black, dry, firm eschar in 100% of the wound. No purulent drainage, no fluctuance, no crepitus. Mild localized erythema around the eschar with mild swelling in this area. Psych: Mental Status: mental status grossly normal Attitude: cooperative Insight: Good insight present (Psych) Judgement: Good judgement present (Psych) Results Labs 03/11/25 08:06 03/11/25 08:06 Labs: All other labs normal. Imaging Additional studies: ITS Impressions Tibia/Fibula X-Ray 03/08/25 17:00 Impression: No acute fracture or malalignment. Venous Doppler Study 03/08/25 18:35 Impression: Negative for DVT. Tibia/Fibula X-Ray 03/08/25 18:42 Impression: Postsurgical changes
== END 2025-03-11 20:55 | disposition home or self-care (01) ==
PROVIDERS: Emergency Medicine; Registered Nurse; Emergency Provider Student in an Organized Health Care Education/Training Program; PCP Family Medicine
DX: L03.115 Cellulitis of right lower limb (principal); L02.415 Cutaneous abscess of right lower limb; L97.229 Non-pressure chronic ulcer of left calf with unspecified severity; L97.219 Non-pressure chronic ulcer of right calf with unspecified severity; M19.90 Unspecified osteoarthritis, unspecified site; Z87.442 Personal history of urinary calculi
CPT/HCPCS: 36415; 73590; 80053; 80202; 82565; 83605; 85025; 85610; 85730; 86140; 87040; 87070; 87075; 93970; 96361; 96365; 96366; 96367; 96368; 96375; 96376; 99284; A9270; J0692; J2270; J3373; J7030; J7050